=== PATIENT | male | born 1970 | race Caucasian/White ===

== ENCOUNTER 2021-08-13 07:46 | Emergency (ER) | payer MEDICAID, SELFPAY ==
[2021-08-13] VITALS (12 sets, daily range): BP systolic 120–138; BP diastolic 76–91; PULSE 54–103; RESP 12–18; TEMP 36.8–36.9; O2SAT 96–99; BMI 26.4
--- NOTE | 2021-08-13 07:49 | XRR_ITS ---
PROCEDURE INFORMATION: Exam: XR Chest Exam date and time: 08/13/2021 7:49 AM Age: 51 years old Clinical indication: Other: Heaviness; Patient HX: 52-year-old male presents emergency room with complaint of chest pain shortness of breath fatigue myalgias. This been going on for last 3 days. TECHNIQUE: Imaging protocol: XR of the chest. Views: 1 view. COMPARISON: CR Chest 1 [place] [id number] 05/21/2018 12:43 PM FINDINGS: Lungs: Unremarkable. No consolidation. Pleural spaces: Unremarkable. No pleural effusion. No pneumothorax. Heart/Mediastinum: Unremarkable. No cardiomegaly. Bones/joints: Unremarkable. XR/XR chest 1V portable [id number] IMPRESSION: No acute findings.
--- NOTE | 2021-08-13 07:49 | ECG_ITS ---
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/store/[id number]
--- NOTE | 2021-08-13 07:49 | W.ED.CHESTPA ---
HPI - Chest Pain General: Chief Complaint: Chest Pain Stated Complaint: cp, sob, fatigue Time Seen by Provider: 08/13/21 07:48 History of Present Illness: HPI narrative: 52-year-old male presents emergency room with complaint of chest pain shortness of breath fatigue myalgias. This been going on for last 3 days. He has had a mildly productive cough mostly clear phlegm. He has not noticed any fevers he has had some associated diarrhea with that. He has no known history of coronary artery disease although he did have a work-up about 3 years ago which included a negative angiogram in April 2018. He noticed that rest does alleviate symptoms exertion worsens particularly the shortness of breath. He states he is a sudden loss of stamina as well. Patient is nondiabetic is a known history of hypertension and he is a smoker. MD complaint: chest pain and chest heaviness Onset (ago): day(s) (3) Timing of current episode: episodic Onset: during exertion Pain location: left chest Pain radiation: none Severity: mild Quality: aching and heaviness Relieving factors: rest Exacerbating factors: exertion Associated symptoms: Reports dyspnea; Deny abdominal pain, diaphoresis, fever(s), leg edema, nausea, palpitations, sense of impending doom, syncope or vomiting Treatment prior to arrival: none Review of Systems Const: Denies: fever(s) or diaphoresis Card: Denies: palpitations or syncope Resp: Reports: dyspnea and productive cough (Clear phlegm) GI: Denies: abdominal pain, nausea or vomiting : Denies: flank pain, dysuria, urinary frequency or urinary urgency Skin/Breast: Denies: rash or pruritus [facility] ED PFSH: Medical History (Updated 08/13/21 @ 10:39 by Ken Vee DO) HTN (hypertension) Physical Exam Const: COMMON NORMALS: no acute distress GENERAL APPEARANCE: cooperative and comfortable ORIENTATION/CONSCIOUSNESS: Yes awake, Yes oriented to person, Yes oriented to place and Yes oriented to time HENMT: COMMON NORMALS: normocephalic, atraumatic and hearing grossly normal bilaterally HEAD & SCALP: normocephalic and atraumatic Neck/C-Spine: COMMON NORMALS: no JVD Resp: COMMON NORMALS: normal respiratory effort, No retractions, No use of accessory muscles and clear to auscultation bilaterally AUSCULTATION: clear to auscultation bilaterally Cardio: COMMON NORMALS: no JVD, regular rate, regular rhythm and No murmurs present (Cardio) RATE: regular rate RHYTHM: regular rhythm GI: COMMON NORMALS: Soft to palpation and No hepatosplenomegaly present AUSCULTATION: Yes normoactive bowel sounds PALPATION: Yes Soft to palpation, No Tenderness to palpation present (GI), No Guarding due to palpation present (GI) and Yes No hepatosplenomegaly present Extremity: COMMON NORMALS: normal to inspection, capillary refill normal, no clubbing, cyanosis or edema, no calf tenderness and no pedal edema Neuro: SENSORIUM/ORIENTATION: Yes oriented to person, Yes oriented to place and Yes oriented to time Skin: COMMON NORMALS: no rashes or lesions noted GENERAL SKIN EXAM: no rashes or lesions noted Course Vital Signs: Vital signs: Vital Signs Temperature 98.4 F 08/13/21 09:30 Pulse Rate 57 L 08/13/21 10:30 Respiratory Rate 16 08/13/21 10:30 Blood Pressure 123/78 08/13/21 10:30 Pulse Oximetry 98 08/13/21 10:30 MDM - Chest Pain MDM Narrative: Medical decision making narrative: Labs imaging and EKGs reviewed as on the chart. 2-hour troponin negative EKGs do not show anything acute. 3 years ago patient had a normal angiogram. Organ to go ahead and discharge the patient home. In discussing his discharge with the patient he made comment of the fact that he had had bloody stools a few days ago the bloody stools resolved and he is not had any further problems. In the past he was told he had diverticulosis based on a CT of his abdomen has not had a colonoscopy. And is not had any further problems. In the past he was told he had diverticulosis based on a CT of his abdomen has not had a colonoscopy. We will go and start him on 1 weeks worth of Cipro and yl encouraged him to follow-up with his primary care doctor he should have a colonoscopy at some point in the near future. Also advised patient to maintain self quarantine until Covid results are back is worsening symptoms return. If his Covid is negative follow-up with primary care for further discussion about repeat stress testing. Return if has problems Lab Data: Labs: Lab Results 08/13/21 08/13/21 08/13/21 Range/Units 08:05 08:05 08:05 WBC 7.9 (4.0-10.0) 10^3/ uL RBC 5.04 (4.1-5.3) 10^6/u L Hgb 15.6 (11.7-16.6) g/dL Hct 47.3 (42.0-52.0) % MCV 93.8 (80-94) fl MCH 31.0 (28.0-34.0) pg MCHC 33.0 (30.0-36.0) g/dL RDW 12.5 (12.1-15.1) % Plt Count 303 (130-400) 10^3/c mm MPV 10.8 H (7.4-10.4) fL Neut % (Auto) 70.8 % Lymph % (Auto) 20.9 % [place] % (Auto) 6.0 % Eos % (Auto) 1.6 % Baso % (Auto) 0.4 % Neut # (Auto) 5.62 (1.8-7.7) 10^3/u L Lymph # (Auto) 1.7 (0.8-4.8) 10^3/u L [place] # (Auto) 0.5 (0.2-0.9) 10^3/u L Eos # (Auto) 0.1 (0.0-0.8) 10^3/u L Baso # (Auto) 0.0 (0.0-0.1) 10^3/u L Nucleated RBC % (a uto) 0 % Nucleated RBCs # 0.0 /100WBC Sodium 137 (136-145) mmol/L Potassium 4.7 (3.5-5.1) mmol/L Chloride 102 (98-107) mmol/L Carbon Dioxide 24 (22-29) mmol/L Anion Gap 15.7 (5-19) BUN 14 (6-20) mg/dL Creatinine 0.9 (0.7-1.2) mg/dL GFR Calculation 89.0 L (90-130) mL/min Glucose 118 H (65-115) mg/dL Calculated Osmolal ity 286 (285-295) mOsm/k g Calcium 9.4 (8.5-10.5) mg/dL Total Bilirubin 0.9 (0.15-1.2) mg/dL AST 14 (0-40) U/L ALT 16 (0-41) U/L Alkaline Phosphata se 66 (40-130) IU/L Troponin T Baselin e 8 (0-15) ng/L Troponin T 120 Min mor[place] (0-15) ng/L Delta Troponin T (0-10) ABS# Total Protein 6.8 (6.6-8.7) g/dL Albumin 4.4 (3.5-5.2) g/dL Globulin 2.4 (1.3-4.6) g/dL 08/13/21 Range/Units 09:56 WBC (4.0-10.0) 10^3/ uL RBC (4.1-5.3) 10^6/u L Hgb (11.7-16.6) g/dL Hct (42.0-52.0) % MCV (80-94) fl MCH (28.0-34.0) pg MCHC (30.0-36.0) g/dL RDW (12.1-15.1) % Plt Count (130-400) 10^3/c mm MPV (7.4-10.4) fL Neut % (Auto) % Lymph % (Auto) % [place] % (Auto) % Eos % (Auto) % Baso % (Auto) % Neut # (Auto) (1.8-7.7) 10^3/u L Lymph # (Auto) (0.8-4.8) 10^3/u L [place] # (Auto) (0.2-0.9) 10^3/u L Eos # (Auto) (0.0-0.8) 10^3/u L Baso # (Auto) (0.0-0.1) 10^3/u L Nucleated RBC % (a uto) % Nucleated RBCs # /100WBC Sodium (136-145) mmol/L Potassium (3.5-5.1) mmol/L Chloride (98-107) mmol/L Carbon Dioxide (22-29) mmol/L Anion Gap (5-19) BUN (6-20) mg/dL Creatinine (0.7-1.2) mg/dL GFR Calculation (90-130) mL/min Glucose (65-115) mg/dL Calculated Osmolal ity (285-295) mOsm/k g Calcium (8.5-10.5) mg/dL Total Bilirubin (0.15-1.2) mg/dL AST (0-40) U/L ALT (0-41) U/L Alkaline Phosphata se (40-130) IU/L Troponin T Baselin e (0-15) ng/L Troponin T 120 Min [place] 6.43 (0-15) ng/L Delta Troponin T -1.57 L (0-10) ABS# Total Protein (6.6-8.7) g/dL Albumin (3.5-5.2) g/dL Globulin (1.3-4.6) g/dL Discharge Plan Discharge Patient Disposition: Home Clinical Impression: Atypical chest pain, COVID-19 determined by clinical diagnostic criteria, Diverticulitis Condition: Stable Prescriptions: New ciprofloxacin HCl 500 mg tablet 500 mg PO BID Qty: 14 RF: 0 Flagyl 500 mg tablet 500 mg PO BID 7 Days Qty: 14 RF: 0 No Action multivitamin Tablet 1 tab PO QAM RF: 0 Aspir-81 81 mg Tablet,Delayed Release (Dr/Ec) 81 mg PO QAM RF: 0 tamsulosin 0.4 mg capsule 0.4 mg PO QAM RF: 0 lisinopril 10 mg tablet 20 mg PO QAM RF: 0 Nitrostat 0.4 mg Tablet, Sublingual 0.4 mg SUBLINGUAL Q5M PRN (Reason: Chest Pain) RF: 0 Discharge Orders: Discharge ED (Routine); Ordered 08/13/21 Ordered By: Ken Vee Referrals: Alfredo Rowland [Primary Care Provider] - Discharge Diet: Usual diet Discharge Activity: Limit activity as instructed Patient Instructions: Opioid Safety Activity Restrictions/Additional Instructions: Follow-up with your primary care. You were tested today for COVID-19 recommend you remain in self quarantine until the result is back tomorrow. If it is negative you may need a repeat cardiac stress test if it is positive further instructions per your primary care. Return to the emergency room for further problems. Coding Level of Care Code ED Cloth Burler for Ame Fwlatia Exam Comprehensive
[2021-08-13] MEDS: aspirin 81 mg Chew Tablet 324 MG PO (08:04)
[2021-08-13 08:26] LABS: Basophils % 0.4 %; Eosinophils # 0.1 10^3/uL (0.0-0.8); Eosinophils % 1.6 %; Hematocrit 47.3 % (42.0-52.0); Hemoglobin 15.6 g/dL (11.7-16.6); Lymphocytes # 1.7 10^3/uL (0.8-4.8); Lymphocytes % 20.9 %; Mean Corpuscular Volume 93.8 fl (80-94); Mean Platelet Volume 10.8 fL (7.4-10.4); Monocytes # 0.5 10^3/uL (0.2-0.9); Neutrophils # 5.62 10^3/uL (1.8-7.7); Neutrophils % 70.8 %; Nucleated Red Blood Cells % 0 %; Platelet Count 303 10^3/cmm (130-400); Red Blood Count 5.04 10^6/uL (4.1-5.3); Red Cell Distribution Width 12.5 % (12.1-15.1); White Blood Count 7.9 10^3/uL (4.0-10.0)
[2021-08-13 08:38] LABS: Alanine Aminotransferase 16 U/L (0-41); Albumin Level 4.4 g/dL (3.5-5.2); Alkaline Phosphatase 66 IU/L (40-130); Anion Gap 15.7 (5-19); Aspartate Amino Transferase 14 U/L (0-40); Blood Urea Nitrogen 14 mg/dL (6-20); Calcium 9.4 mg/dL (8.5-10.5); Carbon Dioxide 24 mmol/L (22-29); Chloride 102 mmol/L (98-107); Creatinine Clr Calc Pharmacy 115.6824; Globulin 2.4 g/dL (1.3-4.6); Glucose 118 mg/dL (65-115); Osmolality Calculated 286 mOsm/kg (285-295); Potassium 4.7 mmol/L (3.5-5.1); Sodium 137 mmol/L (136-145); Total Bilirubin 0.9 mg/dL (0.15-1.2); Total Protein 6.8 g/dL (6.6-8.7); Troponin(5th) Baseline 8 ng/L (0-15)
--- NOTE | 2021-08-13 09:49 | ECG_ITS ---
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
[2021-08-13 10:23] LABS: Troponin 5 2HR 6.43 ng/L (0-15)
[2021-08-13 10:26] LABS: Troponin 5 2HR Delta -1.57 ABS# (0-10)
[2021-08-14 15:26] LABS: Coronavirus Test Green County Not Detected
== END 2021-08-13 11:00 | disposition home or self-care (01) ==
PROVIDERS: Emergency Provider Family Medicine; PCP Nurse Practitioner Family
DX: U07.1 COVID-19 (principal); R07.89 Other chest pain; K57.92 Diverticulitis of intestine, part unspecified, without perforation or abscess without bleeding; Z79.82 Long term (current) use of aspirin; I10 Essential (primary) hypertension
CPT/HCPCS: 71045; 80053; 84484; 85025; 87635; 93005; 99284

== ENCOUNTER 2021-12-30 11:01 | Emergency (ER) | payer BC, MEDICAID, SELFPAY ==
[2021-12-30 11:20] VITALS: BP 161/82; PULSE 75; RESP 18; TEMP 36.6; O2SAT 91; BMI 27.7
--- NOTE | 2021-12-30 11:26 | W.ED.CHESTPA ---
HPI - Chest Pain General: Chief Complaint: Chest Pain Stated Complaint: cp Time Seen by Provider: 12/30/21 11:26 History of Present Illness: 51-year-old gentleman presents with chest pain. States it started yesterday. Reports it is achy. States it was exertional. It is still ongoing. Is not pleuritic. Denies any lower extremity pain or swelling. Denies any nausea vomiting fever cough or chills. Review of Systems Narrative: - CONSTITUTIONAL: Denies weight loss, fever and chills. - HEENT: Denies changes in vision and hearing. - RESPIRATORY: Denies SOB and cough. - CV: As above - GI: Denies abdominal pain, nausea, vomiting and diarrhea. - : Denies dysuria and urinary frequency. - MSK: Denies myalgia and joint pain. - SKIN: Denies rash and pruritus. - NEUROLOGICAL: Denies headache, weakness, numbness and syncope. - PSYCHIATRIC: Denies suicidal ideation [facility] ED PFSH: Medical History (Updated 12/30/21 @ 16:13 by Kvng Buckner MD) HTN (hypertension) Physical Exam Narrative: EXAM NARRATIVE: - GENERAL: Alert and oriented x 3. No acute distress. Well-nourished. - EYES: EOMI. Anicteric. - HENT: Atraumatic, no C-spine tenderness. Moist mucous membranes. No scleral icterus. No cervical lymphadenopathy. - LUNGS: Clear to auscultation bilaterally. No accessory muscle use. Equal lung sounds bilaterally. No respiratory distress. - CARDIOVASCULAR: Regular rate and rhythm. No murmur. No JVD. - ABDOMEN: Soft, non-tender and non-distended. Negative CVA tenderness bilaterally, no rebound or guarding, negative Mustafa sign. No palpable masses. - EXTREMITIES: No edema. Non-tender. - SKIN: No rashes or lesions. Warm. - NEUROLOGIC: No meningismus or focal neurological deficits. CN II-XII grossly intact. - PSYCHIATRIC: Cooperative. Appropriate mood and affect. Course Vital Signs: Vital signs: Vital Signs Temperature 98 F 12/30/21 11:20 Pulse Rate 74 12/30/21 15:50 Respiratory Rate 14 12/30/21 15:50 Blood Pressure 147/103 12/30/21 15:50 Pulse Oximetry 96 12/30/21 15:50 MDM - Chest Pain Medical Decision Making 51-year-old male presents with chest pain. Does have history of previous stress test that was unremarkable in 2017. Had similar symptoms in May 2021. Today EKG and troponins do not reveal any sign of acute ischemia or other acute abnormality. D-dimer is negative. X-ray does not reveal pneumothorax or consolidation. However due to risk factors did offer him admission for stress test however he declined and states that he has an outpatient stress test scheduled and he would like to follow-up with that and I believe this is reasonable. Of note lab work also revealed elevated bilirubin but ultrasound right upper quadrant does not reveal any cholelithiasis or liver abnormality. Remainder of lab work unremarkable. At this time I believe patient would be safe for discharge and outpatient follow-up. Return precautions provided. Plan was reviewed with the patient who expressed understanding. Questions answered. Patient will follow up with PCP. Patient discharged in stable condition. Lab Data : 12/30/21 11:48 12/30/21 11:48 Radiology Impressions Chest X-Ray 12/30/21 11:38 IMPRESSION: No acute findings. Abdomen Ultrasound 12/30/21 14:14 IMPRESSION: No acute findings. Laboratory Results WBC 9.0 10^3/uL (4.0-10.0) 12/30/21 11:48 RBC 5.40 10^6/uL (4.1-5.3) H 12/30/21 11:48 Hgb 16.4 g/dL (11.7-16.6) 12/30/21 11:48 Hct 49.4 % (42.0-52.0) 12/30/21 11:48 MCV 91.5 fl (80-94) 12/30/21 11:48 MCH 30.4 pg (28.0-34.0) 12/30/21 11:48 MCHC 33.2 g/dL (30.0-36.0) 12/30/21 11:48 RDW 12.4 % (12.1-15.1) 12/30/21 11:48 Plt Count 260 10^3/cmm (130-400) 12/30/21 11:48 MPV 11.2 fL (7.4-10.4) H 12/30/21 11:48 Neut % (Auto) 68.8 % 12/30/21 11:48 Lymph % (Auto) 20.7 % 12/30/21 11:48 [place] % (Auto) 7.4 % 12/30/21 11:48 Eos % (Auto) 2.1 % 12/30/21 11:48 Baso % (Auto) 0.7 % 12/30/21 11:48 Neut # (Auto) 6.21 10^3/uL (1.8-7.7) 12/30/21 11:48 Lymph # (Auto) 1.9 10^3/uL (0.8-4.8) 12/30/21 11:48 [place] # (Auto) 0.7 10^3/uL (0.2-0.9) 12/30/21 11:48 Eos # (Auto) 0.2 10^3/uL (0.0-0.8) 12/30/21 11:48 Baso # (Auto) 0.1 10^3/uL (0.0-0.1) 12/30/21 11:48 Nucleated RBC % (auto) 0 % 12/30/21 11:48 Nucleated RBCs # 0.0 /100WBC 12/30/21 11:48 PT 13.10 SECONDS (12.1-14.9) 12/30/21 11:48 INR 0.96 (0.8-1.2) 12/30/21 11:48 APTT 31.3 SECONDS (23.9-36.7) 12/30/21 11:48 D-Dimer 0.30 ug/mIFEU (0-0.59) 12/30/21 11:48 Sodium 134 mmol/L (136-145) L 12/30/21 11:48 Potassium 4.5 mmol/L (3.5-5.1) 12/30/21 11:48 Chloride 101 mmol/L (98-107) 12/30/21 11:48 Carbon Dioxide 19 mmol/L (22-29) L 12/30/21 11:48 Anion Gap 18.5 (5-19) 12/30/21 11:48 BUN 20 mg/dL (6-20) 12/30/21 11:48 Creatinine 0.9 mg/dL (0.7-1.2) 12/30/21 11:48 GFR Calculation 89.0 mL/min (90-130) L 12/30/21 11:48 Glucose 92 mg/dL (65-115) 12/30/21 11:48 Calculated Osmolality 280 mOsm/kg (285-295) L 12/30/21 11:48 Calcium 9.9 mg/dL (8.5-10.5) 12/30/21 11:48 Total Bilirubin 1.4 mg/dL (0.15-1.2) H 12/30/21 11:48 AST 16 U/L (0-40) 12/30/21 11:48 ALT 21 U/L (0-41) 12/30/21 11:48 Alkaline Phosphatase 81 IU/L (40-130) 12/30/21 11:48 Troponin T Baseline 7 ng/L (0-15) 12/30/21 11:48 Troponin T 120 Minute 6.00 ng/L (0-15) 12/30/21 13:51 Delta Troponin T -1.0 ABS# (0-10) L 12/30/21 13:51 NT-Pro-B Natriuret Pep 10 pg/mL (0-125) 12/30/21 11:48 Total Protein 7.1 g/dL (6.6-8.7) 12/30/21 11:48 Albumin 4.9 g/dL (3.5-5.2) 12/30/21 11:48 Globulin 2.2 g/dL (1.3-4.6) 12/30/21 11:48 Lipase 29 U/L (13-60) 12/30/21 11:48 SARS-CoV-2 Ag (Rapid) Negative (Negative) 12/30/21 12:40 Other Data Normal sinus rhythm, rate of 69, no sign of acute ischemia or other acute abnormality. Discharge Plan Discharge Patient Disposition: Home Clinical Impression: Chest pain Condition: Stable Prescriptions: No Action multivitamin Tablet 1 tab PO QAM 0RF aspirin [Aspir-81] 81 mg Tablet,Delayed Release (Dr/Ec) 81 mg PO QAM 0RF lisinopril 10 mg tablet 30 mg PO QAM 0RF nitroglycerin [Nitrostat] 0.4 mg Tablet, Sublingual 0.4 mg SUBLINGUAL Q5M PRN (Reason: Chest Pain) 0RF Fish Oil 1,200 (144-216) mg Capsule 1 cap PO DAILY 0RF Discharge Orders: Discharge ED (Routine); Ordered 12/30/21 Ordered By: Kvng Buckner Referrals: Alfredo Rowland [Primary Care Provider] - 1-3 days Patient Instructions: Chest Pain (ED), Opioid Safety Coding Level of Care Code ED Internet Marketing Executive for Ame Gaytan
--- NOTE | 2021-12-30 11:38 | XRR_ITS ---
PROCEDURE INFORMATION: Exam: XR Chest Exam date and time: 12/30/2021 11:38 AM Age: 51 years old Clinical indication: Pain; Chest pressure; Additional info: Cp TECHNIQUE: Imaging protocol: XR of the chest. Views: 1 view. COMPARISON: CR XR chest 1V portable [id number] 08/13/2021 7:59 AM FINDINGS: Lungs: Unremarkable. No consolidation. Pleural spaces: Unremarkable. No pleural effusion. No pneumothorax. Heart/Mediastinum: Unremarkable. No cardiomegaly. Bones/joints: Unremarkable. XR/XR chest 1V portable [id number] IMPRESSION: No acute findings.
--- NOTE | 2021-12-30 11:41 | ECG_ITS ---
[facility] Test Date: 2021-12-30 Pat Name: Anastacio Coleman Department: Room: Gender: Male Mri Assistant: : 1970 Requested By: Kvng Buckner Order Number: [id number] Ace MD: Zonia Lazaro M.D. Measurements Intervals [place] Rate: 67 P: 22 HI: 162 QRS: -10 QRSD: 99 T: 23 QT: 386 QTc: 408 Interpretive Statements SINUS RHYTHM Compared to ECG 12/30/2021 11:19:52 No significant changes Electronically Signed On 12-30-2021 16:57:52 SORT WORKER by Zonia Lazaro M.D. [email or web address]/store/[id number]
[2021-12-30 11:50] VITALS: BP 135/90; PULSE 75; RESP 21; O2SAT 95
--- NOTE | 2021-12-30 11:53 | PC.NURSE ---
PATIENT PLACED ON CONTINUOUS BEDSIDE CARDIAC, BP AND O2 MONITOR.
[2021-12-30 11:54] LABS: Basophils # 0.1 10^3/uL (0.0-0.1); Basophils % 0.7 %; Eosinophils # 0.2 10^3/uL (0.0-0.8); Eosinophils % 2.1 %; Hematocrit 49.4 % (42.0-52.0); Hemoglobin 16.4 g/dL (11.7-16.6); Lymphocytes # 1.9 10^3/uL (0.8-4.8); Lymphocytes % 20.7 %; Mean Corpuscular HGB Conc 33.2 g/dL (30.0-36.0); Mean Corpuscular Hemoglobin 30.4 pg (28.0-34.0); Mean Corpuscular Volume 91.5 fl (80-94); Mean Platelet Volume 11.2 fL (7.4-10.4); Monocytes # 0.7 10^3/uL (0.2-0.9); Monocytes % 7.4 %; Neutrophils # 6.21 10^3/uL (1.8-7.7); Neutrophils % 68.8 %; Nucleated Red Blood Cells % 0 %; Platelet Count 260 10^3/cmm (130-400); Red Cell Distribution Width 12.4 % (12.1-15.1)
[2021-12-30] MEDS: aspirin 81 mg Chew Tablet 324 MG PO (11:59)
[2021-12-30] MEDS: nitroglycerin 0.4 mg sublingual Tablet SUBLINGUAL (12:00)
[2021-12-30 12:18] LABS: INR 0.96 (0.8-1.2)
[2021-12-30 12:19] LABS: Partial Thromboplastin Time 31.3 SECONDS (23.9-36.7)
[2021-12-30 12:36] VITALS: BP 115/82; PULSE 69; RESP 18; O2SAT 95
[2021-12-30 12:40] LABS: Troponin(5th) Baseline 7 ng/L (0-15)
[2021-12-30 12:48] LABS: Alanine Aminotransferase 21 U/L (0-41); Albumin Level 4.9 g/dL (3.5-5.2); Alkaline Phosphatase 81 IU/L (40-130); Anion Gap 18.5 (5-19); Aspartate Amino Transferase 16 U/L (0-40); Blood Urea Nitrogen 20 mg/dL (6-20); Calcium 9.9 mg/dL (8.5-10.5); Carbon Dioxide 19 mmol/L (22-29); Chloride 101 mmol/L (98-107); Globulin 2.2 g/dL (1.3-4.6); Glucose 92 mg/dL (65-115); Lipase 29 U/L (13-60); NT Pro B Type Natriuretic Pept 10 pg/mL (0-125); Osmolality Calculated 280 mOsm/kg (285-295); Potassium 4.5 mmol/L (3.5-5.1); Sodium 134 mmol/L (136-145); Total Bilirubin 1.4 mg/dL (0.15-1.2); Total Protein 7.1 g/dL (6.6-8.7)
--- NOTE | 2021-12-30 13:41 | ECG_ITS ---
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 Measurements Intervals [place] Rate: 65 P: 29 VT: 166 QRS: 0 QRSD: 99 T: 26 QT: 386 QTc: 401 Interpretive Statements SINUS RHYTHM Compared to ECG 12/30/2021 11:19:52 No significant changes Electronically Signed On 12-30-2021 17:02:51 R PROGRAMMER by Zonia Lazaro M.D. [email or web address].[employer]/store/[id number]
[2021-12-30 13:49] VITALS: BP 114/83; PULSE 65; RESP 16; O2SAT 97
[2021-12-30 13:52] LABS: SARS Covid-2 Antigen Negative (Negative)
--- NOTE | 2021-12-30 14:14 | USR_ITS ---
PROCEDURE INFORMATION: Exam: US Abdomen, Limited; Right Upper Quadrant Exam date and time: 12/30/2021 2:14 PM Age: 51 years old Clinical indication: Abnormal findings; Abnormal lab test; Elevated liver enzymes; Additional info: Elevated bili TECHNIQUE: Imaging protocol: US abdomen. Real time ultrasound with image documentation. Limited exam focused on the right upper quadrant. COMPARISON: CTA Chest-Pulmonary Emb [id number] 05/20/2018 4:48 PM FINDINGS: Liver: Normal. No masses. Gallbladder: Normal. No gallstones. There is no gallbladder wall thickening. Common bile duct: Normal. No stones. No dilation. Pancreas: Visualized pancreas is unremarkable. Body and tail are not well seen likely due to overlying bowel gas. Right kidney: Normal. No mass. No hydronephrosis. US/US abdomen limited [id number] IMPRESSION: No acute findings.
[2021-12-30 15:50] VITALS: BP 147/103; PULSE 74; RESP 14; O2SAT 96
--- NOTE | 2021-12-30 17:41 | ECG_ITS ---
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 Measurements Intervals [place] Rate: 69 P: 44 ID: [id number] QRS: 6 QRSD: 101 T: 47 QT: 371 QTc: 398 Interpretive Statements SINUS RHYTHM Compared to ECG 08/13/2021 09:27:43 Sinus bradycardia no longer present Electronically Signed On 12-30-2021 17:03:01 BALLOON DESIGN PRINTER by Zonia Lazaro M.D. [id number]
== END 2021-12-30 16:21 | disposition home or self-care (01) ==
PROVIDERS: Emergency Provider Emergency Medicine; PCP Nurse Practitioner Family
DX: R07.9 Chest pain, unspecified (principal); Z79.82 Long term (current) use of aspirin; Z20.822 Contact with and (suspected) exposure to COVID-19
CPT/HCPCS: 36415; 71045; 76705; 80053; 83690; 83880; 84484; 85025; 85378; 85610; 85730; 87426; 93005; 99284

== ENCOUNTER → 2022-09-16 14:07 | Outpatient (BNVA) | payer BC, MEDICAID, SELFPAY | PROVIDERS: PCP Nurse Practitioner Family; Visit Provider Internal Medicine | DX: E80.6 Other disorders of bilirubin metabolism (principal); Z87.891 Personal history of nicotine dependence | CPT/HCPCS: 80053; 82247; 82248; 83010; 83615 ==

== ENCOUNTER 2024-02-20 12:17 | Emergency (ER) | payer BC, MEDICAID, SELFPAY ==
[2024-02-20 12:22] VITALS: BP 136/87; PULSE 59; RESP 16; TEMP 36.7; O2SAT 94
--- NOTE | 2024-02-20 12:23 | XR_ITS ---
WS: [id number] Exam: XR chest 1V portable [id number] Date/Time of Exam: 02/20/2024 12:23 PM Reason For Exam: chest pain Comparison 12/30/2021. Findings: The lungs are clear and fully expanded. Costophrenic angles are sharp. No infiltrates. Bronchovascula r relief appears normal. Cardiac silhouette is unremarkable. Bony elements are intact. IMPRESSION: Unremarkable chest radiograph.
--- NOTE | 2024-02-20 12:24 | ECG_ITS ---
[facility] Test Date: 2024-02-20 Pat Name: Anastacio Coleman Department: Room: Gender: Male Regional Clinical Director: : 1970 Requested By: Richy Buckner Order Number: [id number] Malka MD: Gwyn Kong M.D. Measurements Intervals [place] Rate: 54 P: 36 HI: 168 QRS: -1 QRSD: 95 T: 44 QT: 412 QTc: 392 Interpretive Statements SINUS BRADYCARDIA Compared to ECG 12/30/2021 13:14:23 Sinus rhythm no longer present Electronically Signed On 02-20-2024 12:38:28 CDT by Gwyn Kong M.D. [email or web address]/store/NU/[id number] f
[2024-02-20 12:27] VITALS: BP 136/87; PULSE 58; RESP 18; O2SAT 93
--- NOTE | 2024-02-20 12:36 | PC.PHAR ---
pt states he takes care of his own medications-pt states his imdur er 60mg daily was dced a while ago ext shows last filled 06/12/23 30d/s-pt states been out of his nitrostat for a year
--- NOTE | 2024-02-20 12:49 | ED_ITS ---
HPI - Chest Pain 2 General: Chief Complaint: Chest Pain Stated Complaint: Chest pain Time Seen by Provider: 02/20/24 12:23 History of Present Illness: Patient arrives to the ER via private vehicle with chief complaint of right- sided chest pain shortness of breath that started yesterday afternoon. Patient states his pain is more of a pressure and he feels like he cannot catch his breath with his pulse ox at home dipping all the way down to approximately 88. Patient says the pain has not gotten worse but the pain does not seem to go away. Pain is not reproducible with palpation or exertion. Patient states he has no cardiac history other than hypertension. Patient denies any nausea vomiting or diaphoresis. Review of Systems 2 General: Reports: 10 or more systems reviewed and unremarkable except in HPI and below PFSH ED 2 PFSH: Medical History HTN (hypertension) Family History Father No problems noted. Mother ALS (amyotrophic lateral sclerosis) Social History Smoking and tobacco/nicotine status: former use of tobacco/nicotine Quit status (tobacco/nicotine): has quit using Second hand smoke exposure: No Alcohol intake: current Alcohol intake frequency: holidays/special occasions only Alcohol type: beer Substance/Drug Use: never Adopted: No Caregiver/support person: No Lives independently: Yes Household members: spouse and children Housing: House Marital status: Number of children: 2 Highest education level completed: GED or Equivalent service: No Current occupational status: employed Physical Exam 2 Const: COMMON NORMALS: no acute distress, average body habitus, patient oriented x3, no limitations, healthy appearing, alert and well nourished HENMT: COMMON NORMALS: normocephalic, atraumatic, hearing grossly normal bilaterally, external ears normal, Normal external nose present, moist oral mucous membranes and oropharynx normal HEAD & SCALP: normocephalic and atraumatic NOSE: Normal external nose present EXTERNAL EAR: Yes external ears normal Neck/C-Spine: COMMON NORMALS: full ROM, no lymphadenopathy, supple, no meningeal signs, no JVD and Thyroid normal THYROID: Thyroid normal Chest: COMMONS NORMALS: normal inspection of the chest and normal palpation of entire chest wall Resp: COMMON NORMALS: normal respiratory effort, No retractions, No use of accessory muscles and clear to auscultation bilaterally AUSCULTATION: clear to auscultation bilaterally Cardio: COMMON NORMALS: no JVD, regular rate, regular rhythm, S1 normal heart sound present, S2 normal heart sound present, No gallops present (Cardio), No clicks present (Cardio), No murmurs present (Cardio) and No rub (Cardio) R ATE: regular rate RHYTHM: regular rhythm HEART SOUNDS: S1 normal heart sound present and S2 normal heart sound present GI: COMMON NORMALS: Normal to inspection, nondistended, normoactive bowel sounds present, Soft to palpation, non-tender, No hepatosplenomegaly present and no masses PALPATION: Yes Soft to palpation and Yes No hepatosplenomegaly present Neuro: COMMON NORMALS: patient oriented x3 SENSORIUM/ORIENTATION: Yes alert MENINGEAL SIGNS: Yes no meningeal signs Course 2 Vital Signs: Vital signs: Vital Signs Temperature 98.1 F 02/20/24 12:22 Pulse Rate 63 02/20/24 16:44 Respiratory Rate 17 02/20/24 16:44 Blood Pressure 149/98 02/20/24 16:44 Pulse Oximetry 94 02/20/24 16:44 Oxygen Delivery Me thod Room Air 02/20/24 12:22 MDM - Chest Pain Medical Decision Making Patient presents to the ER with complaints of chest pain shortness of breath. Patient was worked up in a standard chest pain fashion with chest x-ray, serial EKGs and lab work. All of which was essentially negative. It is suspected that patient is having noncardiac chest pain. Patient be discharged home and should follow-up with his PCP. Differential Diagnosis Unlikely acute massive pulmonary embolism, acute respiratory failure, acute myocardial infarction, cardiac arrest or sudden cardiac Medical Records I reviewed the patient's medical records. Lab Data I reviewed the patient's lab results. 02/20/24 12:46 02/20/24 12:46 Laboratory Results WBC 6.72 10^3/uL (3.29-11.43) 02/20/24 12:46 RBC 5.16 10^6/uL (3.85-5.65) 02/20/24 12:46 Hgb 15.90 g/dL (11.27-16.99) 02/20/24 12:46 Hct 47.3 % (37-53) 02/20/24 12:46 MCV 91.7 fl (82-101) 02/20/24 12:46 MCH 30.8 pg (27-33) 02/20/24 12:46 MCHC 33.6 g/dL (30-55) 02/20/24 12:46 RDW 12.8 % (12.1-15.1) 02/20/24 12:46 Plt Count 304 10^3/cmm (157-399) 02/20/24 12:46 MPV 9.9 fL (7.4-10.4) 02/20/24 12:46 Neut % (Auto) 52.4 % 02/20/24 12:46 Lymph % (Auto) 34.7 % 02/20/24 12:46 [place] % (Auto) 8.2 % 02/20/24 12:46 Eos % (Auto) 3.9 % 02/20/24 12:46 Baso % (Auto) 0.7 % 02/20/24 12:46 Neut # (Auto) 3.52 10^3/uL (1.8-7.7) 02/20/24 12:46 Lymph # (Auto) 2.3 10^3/uL (0.8-4.8) 02/20/24 12:46 [place] # (Auto) 0.6 10^3/uL (0.2-0.9) 02/20/24 12:46 Eos # (Auto) 0.3 10^3/uL (0.0-0.8) 02/20/24 12:46 Baso # (Auto) 0.1 10^3/uL (0.0-0.1) 02/20/24 12:46 Nucleated RBC % (auto) 0 % 02/20/24 12:46 Nucleated RBCs # 0.0 /100WBC 02/20/24 12:46 Sodium 138 mmol/L (136-145) 02/20/24 12:46 Potassium 4.6 mmol/L (3.5-5.1) 02/20/24 12:46 Chloride 101 mmol/L (98-107) 02/20/24 12:46 Carbon Dioxide 24 mmol/L (22-29) 02/20/24 12:46 Anion Gap 17.6 (5-19) 02/20/24 12:46 BUN 23 mg/dL (6-20) H 02/20/24 12:46 Creatinine 0.9 mg/dL (0.7-1.2) 02/20/24 12:46 GFR Calculation 88.3 mL/min (90-130) L 02/20/24 12:46 Glucose 99 mg/dL (65-115) 02/20/24 12:46 Calculated Osmolality 290 mOsm/kg (285-295) 02/20/24 12:46 Calcium 9.6 mg/dL (8.5-10.5) 02/20/24 12:46 Total Bilirubin 1.1 mg/dL (0.15-1.2) 02/20/24 12:46 AST 20 U/L (0-40) 02/20/24 12:46 ALT 31 U/L (0-41) 02/20/24 12:46 Alkaline Phosphatase 96 U/L (40-130) 02/20/24 12:46 Troponin T Baseline 8 ng/L (0-15) 02/20/24 12:46 Troponin T 120 Minute 6.00 ng/L (0-15) 02/20/24 15:03 Delta Troponin T -2.00 ABS# (0-10) L 02/20/24 15:03 Total Protein 7.2 g/dL (6.6-8.7) 02/20/24 12:46 Albumin 4.5 g/dL (3.5-5.2) 02/20/24 12:46 Globulin 2.7 g/dL (1.3-4.6) 02/20/24 12:46 All radiology interpretation(s) finalized by discharge EKG Data EKG 1: I personally reviewed and interpreted this EKG as follows: EKG interpretation date: 02/20/24 EKG interpretation time: 12:24 Interpretation: Ventricular 54 bpm, QRS 95, ID interval 168, QTc of 398, sinus bradycardia EKG 2: I personally reviewed and interpreted this EKG as follows: EKG interpretation date: 02/20/24 EKG interpretation time: 15:04 Prior EKG tracings: available for review Interpretation: Ventricular at 53 bpm ID interval 163, QRS duration 100, QTc of 408, sinus bradycardia Discharge Plan Discharge Patient Disposition: Home Clinical Impression: Chest pain, non-cardiac Condition: Stable Prescriptions: No Action multivitamin Tablet 1 tab PO QAM aspirin [Aspir-81] 81 mg Tablet,Delayed Release (Dr/Ec) 81 mg PO QAM sucralfate 100 mg/mL suspension 10 ml PO Q8H Rx Instructions: for 7 days (rx filled 02/18/24) omeprazole 40 mg capsule,delayed release(DR/EC) 40 mg PO QAM lisinopril 30 mg tablet 30 mg PO QAM Aleve 220 mg Tablet 220 mg PO BID PRN (Reason: Pain) Discharge Orders: Discharge ED (Routine); Ordered 02/20/24 Ordered By: Richy Buckner Referrals: Alfredo Rowland [Primary Care Provider] - 1 week Patient Instructions: Chest Pain - Noncardiac Activity Restrictions/Additional Instructions: Your evaluation in the ER that included physical exam, chest x-ray, EKG, and lab work revealed no acute cardiac causes for your chest pain. It is felt that your chest pain is noncardiac in nature. Please follow-up with your family practitioner within next week for further evaluation testing. If your chest pain worsens please feel free to return to the ER. Coding Level of Care Code ED Inspector Handbag Frames for Ame Gaytan
[2024-02-20 13:06] LABS: Basophils # 0.1 10^3/uL (0.0-0.1); Basophils % 0.7 %; Eosinophils # 0.3 10^3/uL (0.0-0.8); Eosinophils % 3.9 %; Hematocrit 47.3 % (37-53); Lymphocytes # 2.3 10^3/uL (0.8-4.8); Lymphocytes % 34.7 %; Mean Corpuscular HGB Conc 33.6 g/dL (30-55); Mean Corpuscular Hemoglobin 30.8 pg (27-33); Mean Corpuscular Volume 91.7 fl (82-101); Mean Platelet Volume 9.9 fL (7.4-10.4); Monocytes # 0.6 10^3/uL (0.2-0.9); Monocytes % 8.2 %; Neutrophils # 3.52 10^3/uL (1.8-7.7); Neutrophils % 52.4 %; Nucleated Red Blood Cells % 0 %; Platelet Count 304 10^3/cmm (157-399); Red Blood Count 5.16 10^6/uL (3.85-5.65); Red Cell Distribution Width 12.8 % (12.1-15.1); White Blood Count 6.72 10^3/uL (3.29-11.43)
[2024-02-20 13:28] LABS: Alanine Aminotransferase 31 U/L (0-41); Albumin Level 4.5 g/dL (3.5-5.2); Alkaline Phosphatase 96 U/L (40-130); Anion Gap 17.6 (5-19); Aspartate Amino Transferase 20 U/L (0-40); Blood Urea Nitrogen 23 mg/dL (6-20); Calcium 9.6 mg/dL (8.5-10.5); Carbon Dioxide 24 mmol/L (22-29); Chloride 101 mmol/L (98-107); Creatinine Clr Calc Pharmacy 113.0828; Globulin 2.7 g/dL (1.3-4.6); Glomerular Filtration Rate 88.3 mL/min (90-130); Glucose 99 mg/dL (65-115); Osmolality Calculated 290 mOsm/kg (285-295); Potassium 4.6 mmol/L (3.5-5.1); Sodium 138 mmol/L (136-145); Total Bilirubin 1.1 mg/dL (0.15-1.2); Total Protein 7.2 g/dL (6.6-8.7)
[2024-02-20 13:31] LABS: Troponin(5th) Baseline 8 ng/L (0-15)
--- NOTE | 2024-02-20 14:23 | ECG_ITS ---
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 Measurements Intervals [place] Rate: 53 P: 21 [place]: 163 QRS: 9 QRSD: 100 T: 45 QT: 424 QTc: 401 Interpretive Statements SINUS BRADYCARDIA Compared to ECG 02/20/2024 12:24:17 No significant changes Electronically Signed On 02-20-2024 22:53:41 CDT by Gwyn Kong M.D. [id number]
[2024-02-20 15:27] VITALS: BP 130/80; PULSE 56; RESP 18; O2SAT 93
[2024-02-20 16:44] VITALS: BP 149/98; PULSE 63; RESP 17; O2SAT 94
== END 2024-02-20 16:49 | disposition home or self-care (01) ==
PROVIDERS: Emergency Provider Emergency Medicine; PCP Nurse Practitioner Family
DX: R07.89 Other chest pain (principal); Z79.82 Long term (current) use of aspirin; I10 Essential (primary) hypertension; Z87.891 Personal history of nicotine dependence
CPT/HCPCS: 36415; 71045; 80053; 84484; 85025; 93005; 99285

== ENCOUNTER 2024-12-13 08:13 | Emergency (ER) | payer BC, MEDICAID, SELFPAY ==
[2024-12-13 08:28] VITALS: BP 133/84; PULSE 73; RESP 18; TEMP 36.8; O2SAT 98
--- NOTE | 2024-12-13 09:08 | ED_ITS ---
HPI - Abdominal Pain 2 General: Chief Complaint: Abdominal Pain Stated Complaint: abd pain Time Seen by Provider: 12/13/24 08:58 Source: patient Mode of arrival: ambulatory Limitations: no limitations History of Present Illness: Patient is a 54-year-old male presents to ED today with complaint of epigastric and left upper quadrant abdominal pain. He states pain has been fairly constant over the past week. He has not noticed any alleviating or worsening factors to his discomfort. He does not seem to think eating affects his symptoms. It is not worse with lying down. He does take omeprazole daily for heartburn. He states he feels nauseous but has not had any episodes of vomiting. He has not noticed any change in bowel or urinary habits. He has not been running fevers. No recent illness. Denies large amounts of anti-inflammatories. Denies alcohol use. States pain does not seem to radiate into his chest or back. He is currently rating it at a 6/10. PCP is Dr. Lanier. elicited complaint: abdominal pain Pertinent past history: none Onset (ago): week(s) Pain Consistency: constant Location: Epigastric and LUQ Severity: moderate Pain scale (0-10): 6 Radiation: none Migration to: no migration Exacerbating factors: nothing Relieving factors: nothing Associated Symptoms: Reports nausea; Denies change in bowel habits, chills, GI cramping, diarrhea, dysuria, fever(s), heartburn, hematochezia, hematemesis, melena, syncope and vomiting Related Data Home Medications Medication Instructions Recorded Confirmed multivitamin 1 tab PO QAM 08/13/21 12/13/24 omeprazole 20 mg capsule,delayed 20 mg PO DAILY 12/13/24 12/13/24 release Previous Rx's Medication Instructions Recorded sucralfate 1 gram tablet (Carafate) 1 g PO TID 2 weeks #42 tabs 12/13/24 Allergies Allergy/AdvReac Type Severity Reaction Status Date / Time No Known Allergies Allergy Verified 02/20/24 12:34 Review of Systems 2 Const: Denies: fever(s), chills, body aches, fatigue or malaise Eyes: Denies: change in vision or blurry vision Card: Denies: chest pain, palpitations, irregular heart rhythm, lightheadedness, syncope or dyspnea on exertion Resp: Denies: dyspnea, productive cough or pain on inspiration GI: Reports: abdominal pain and nausea; Denies: vomiting, hematemesis, heartburn, diarrhea, GI cramping, change in bowel habits, hematochezia or melena : Denies: flank pain, difficulty urinating, dysuria or urinary frequency Musc: Denies: neck pain, back pain, extremity pain, extremity swelling or joint pain Skin/Breast: Denies: rash Neuro: Denies: headache(s), numbness in extremities, weakness in extremities, sensory changes or dizziness PFSH ED 2 PFSH: Medical History HTN (hypertension) Family History (Reviewed 12/13/24 @ 09: by NALLELY Escobar) Father No problems noted. Mother ALS (amyotrophic lateral sclerosis) Social History Smoking and tobacco/nicotine status: former use of tobacco/nicotine Quit status (tobacco/nicotine): has quit using Second hand smoke exposure: No Alcohol intake: current Alcohol intake frequency: holidays/special occasions only Alcohol type: beer Substance/Drug Use: never Adopted: No Caregiver/support person: No Lives independently: Yes Household members: spouse and children Housing: House Marital status: Number of children: 2 Highest education level completed: GED or Equivalent service: No Current occupational status: employed Physical Exam 2 Const: COMMON NORMALS: no acute distress, average body habitus, patient oriented x3, no limitations, healthy appearing, alert and well nourished HENMT: COMMON NORMALS: normocephalic and atraumatic HEAD & SCALP: n ormocephalic and atraumatic Eye: COMMON NORMALS: no scleral icterus Neck/C-Spine: COMMON NORMALS: full ROM, no lymphadenopathy, supple and no meningeal signs Chest: COMMONS NORMALS: normal inspection of the chest Resp: COMMON NORMALS: normal respiratory effort and clear to auscultation bilaterally AUSCULTATION: clear to auscultation bilaterally Cardio: COMMON NORMALS: regular rate and regular rhythm RATE: regular rate RHYTHM: regular rhythm GI: COMMON NORMALS: Normal to inspection, nondistended, normoactive bowel sounds present, Soft to palpation, No hepatosplenomegaly present and no masses INSPECTION: Yes normal to inspection AUSCULTATION: Yes normoactive bowel sounds PALPATION: Yes Soft to palpation, Yes Tenderness to palpation present (GI) (mild tenderness epigastric/LUQ), No Guarding due to palpation present (GI), No Rigid due to palpation and Yes No hepatosplenomegaly present : COMMON NORMALS: Yes no CVA tenderness BLADDER/KIDNEY EXAM: Yes no CVA tenderness Back/Pelvis: COMMON NORMALS: no CVA tenderness and thoracic and lumbar spine normal to inspection Extremity: COMMON NORMALS: normal to inspection, no clubbing, cyanosis or edema, no calf tenderness and no pedal edema GENERAL: Yes normal exam except as noted Neuro: COMMON NORMALS: patient oriented x3 SENSORIUM/ORIENTATION: Yes alert MENINGEAL SIGNS: Yes no meningeal signs Skin: COMMON NORMALS: no rashes or lesions noted GENERAL SKIN EXAM: no rashes or lesions noted Course 2 Vital Signs: Vital signs: Vital Signs Temperature 98.3 F 12/13/24 08:28 Pulse Rate 73 12/13/24 08:28 Respiratory Rate 18 12/13/24 08:28 Blood Pressure 133/84 12/13/24 08:28 Pulse Oximetry 98 12/13/24 08:28 Oxygen Delivery Me thod Room Air 12/13/24 08:28 MDM - Abdominal Pain Medical Decision Making Patient here with fairly constant epigastric pain over the past week. Pain is easily reproduced with palpation to his epigastric/left upper quadrant of his abdomen. Abdominal examination is nonsurgical. He clinically appears in no acute distress with stable vital signs. His blood work overall is nonactionable. His lipase is normal. He has isolated hyperbilirubinemia 1.8. He has had this previously and is having Dr. Chicas for this. Patient has no RUQ abdominal pain. Remainder of LFTs are unremarkable. Patient has chronic GERD for which he takes omeprazole. I suspect the symptoms are GI related. Will have him increase his omeprazole to twice daily and place him on Carafate. Dietary restrictions discussed. Will have him discontinue his Aleve as listed on his medication list. He is requesting general surgery/GI follow-up for endoscopy evaluation which I feel is appropriate. Return ED precautions given. Medical Records I reviewed the patient's medical records. Lab Data I reviewed the patient's lab results. 12/13/24 09:16 12/13/24 09:16 Labs/Radiology: Laboratory Results WBC 8.25 10^3/uL (3.29-11.43) 12/13/24 09:16 RBC 5.45 10^6/uL (3.85-5.65) 12/13/24 09:16 Hgb 16.90 g/dL (11.27-16.99) 12/13/24 09:16 Hct 50.1 % (37-53) 12/13/24 09:16 MCV 91.9 fl (82-101) 12/13/24 09:16 MCH 31.0 pg (27-33) 12/13/24 09:16 MCHC 33.7 g/dL (30-55) 12/13/24 09:16 RDW 12.7 % (12.1-15.1) 12/13/24 09:16 Plt Count 275 10^3/cmm (157-399) 12/13/24 09:16 MPV 10.5 fL (7.4-10.4) H 12/13/24 09:16 Neut % (Auto) 74.8 % 12/13/24 09:16 Lymph % (Auto) 17.0 % 12/13/24 09:16 [place] % (Auto) 5.9 % 12/13/24 09:16 Eos % (Auto) 1.6 % 12/13/24 09:16 Baso % (Auto) 0.5 % 12/13/24 09:16 Neut # (Auto) 6.17 10^3/uL (1.8-7.7) 12/13/24 09:16 Lymph # (Auto) 1.4 10^3/uL (0.8-4.8) 12/13/24 09:16 [place] # (Auto) 0.5 10^3/uL (0.2-0.9) 12/13/24 09:16 Eos # (Auto) 0.1 10^3/uL (0.0-0.8) 12/13/24 09:16 Baso # (Auto) 0.0 10^3/uL (0.0-0.1) 12/13/24 09:16 Nucleated RBC % (auto) 0 % 12/13/24 09:16 Nucleated RBCs # 0.0 /100WBC 12/13/24 09:16 Sodium 136 mmol/L (136-145) 12/13/24 09:16 Potassium 4.3 mmol/L (3.5-5.1) 12/13/24 09:16 Chloride 98 mmol/L (98-107) 12/13/24 09:16 Carbon Dioxide 23 mmol/L (22-29) 12/13/24 09:16 Anion Gap 19.3 (5-19) H 12/13/24 09:16 BUN 21 mg/dL (6-20) H 12/13/24 09:16 Creatinine 1.0 mg/dL (0.7-1.2) 12/13/24 09:16 GFR Calculation 77.9 mL/min (90-130) L 12/13/24 09:16 Glucose 101 mg/dL (65-115) 12/13/24 09:16 Calculated Osmolality 285 mOsm/kg (285-295) 12/13/24 09:16 Calcium 9.3 mg/dL (8.5-10.5) 12/13/24 09:16 Total Bilirubin 1.8 mg/dL (0.15-1.2) H 12/13/24 09:16 AST 23 U/L (0-40) 12/13/24 09:16 ALT 27 U/L (0-41) 12/13/24 09:16 Alkaline Phosphatase 76 U/L (40-130) 12/13/24 09:16 Total Protein 7.2 g/dL (6.6-8.7) 12/13/24 09:16 Albumin 4.5 g/dL (3.5-5.2) 12/13/24 09:16 Globulin 2.7 g/dL (1.3-4.6) 12/13/24 09:16 Lipase 37 U/L (13-60) 12/13/24 09:16 Urine Color Yellow (Yellow) 12/13/24 08:30 Urine Appearance Clear (CLEAR) 12/13/24 08:30 Urine pH 5.5 (5-7) 12/13/24 08:30 Ur Specific [place] 1.028 (1.005-1.030) 12/13/24 08:30 Urine Protein Negative (Negative) 12/13/24 08:30 Urine Glucose (UA) Negative (Normal) 12/13/24 08:30 Urine Ketones 2+ (Negative) H 12/13/24 08:30 Urine Blood Negative (Negative) 12/13/24 08:30 Urine Nitrate Negative (Negative) 12/13/24 08:30 Urine Bilirubin Negative (Negative) 12/13/24 08:30 Urine Urobilinogen 0.2 mg/dL (Negative) 12/13/24 08:30 Ur Leukocyte Esterase Negative (Negative) 12/13/24 08:30 Urine RBC 0-2 /hpf (0-2) 12/13/24 08:30 Urine WBC 0-5 /hpf (0-5) 12/13/24 08:30 Ur Squamous Epith Cells 0-5 /hpf (0-5) 12/13/24 08:30 Amorphous Sediment Not Reportable 12/13/24 08:30 Urine Bacteria None seen /hpf (NONE) 12/13/24 08:30 Hyaline Casts 0.40 /lpf 12/13/24 08:30 No radiology studies performed this visit Discharge Plan Discharge Patient Disposition: Home Clinical Impression: Epigastric pain Condition: Stable Prescriptions: New sucralfate [Carafate] 1 gram tablet 1 g PO TID 14 Days Qty: 42 0RF Discontinued naproxen sodium [Aleve] 220 mg Tablet 220 mg PO BID PRN (Reason: Pain) No Action multivitamin Tablet 1 tab PO QAM omeprazole 20 mg Capsule,Delayed Release(Dr/Ec) 20 mg PO DAILY Discharge Orders: Discharge ED (Routine); Ordered 12/13/24 Ordered By: Franny Andrews Referrals: Alfredo Rowland [Primary Care Provider] - Patient Instructions: Abdominal Pain (ED) Activity Restrictions/Additional Instructions: As we discussed, increase your omeprazole to 20 Mg twice daily. I will start you on Carafate. Avoid taking the Aleve that was listed on your medication list. We will have you follow-up with general surgery/GI for further evaluation of your epigastric pain possible evaluation for an endoscopy. Avoid spicy, salty, acidic foods. You need to return to the emergency department for worsening abdominal pain, chest pain, vomiting blood, generally feeling worse or unwell, or any other concerns you may have. I hope you begin to feel better soon. Coding Level of Care Code ED Foreign Car Mechanic for Ame Gaytan
[2024-12-13] MEDS: lidocaine 2% viscous 15 ML, aluminum-mag hydrox-simethicon 30 ML, sucralfate oral liq 1 GM PO (09:21)
[2024-12-13 09:29] LABS: Bilirubin Urine Negative (Negative); Blood Urine Negative (Negative); Glucose Urine UA Negative (Normal); Ketones Urine 2+ (Negative); Leukocyte Esterase Urine Negative (Negative); Nitrate Urine Negative (Negative); Protein Urine Negative (Negative); Specific Gravity, Urine 1.028 (1.005-1.030); Urine Appearance Clear (CLEAR); Urine Color Yellow (Yellow); Urobilinogen Urine 0.2 mg/dL (Negative); pH Urine 5.5 (5-7)
[2024-12-13 09:29] LABS: Basophils % 0.5 %; Eosinophils # 0.1 10^3/uL (0.0-0.8); Eosinophils % 1.6 %; Hematocrit 50.1 % (37-53); Lymphocytes # 1.4 10^3/uL (0.8-4.8); Mean Corpuscular HGB Conc 33.7 g/dL (30-55); Mean Corpuscular Volume 91.9 fl (82-101); Mean Platelet Volume 10.5 fL (7.4-10.4); Monocytes # 0.5 10^3/uL (0.2-0.9); Monocytes % 5.9 %; Neutrophils # 6.17 10^3/uL (1.8-7.7); Neutrophils % 74.8 %; Nucleated Red Blood Cells % 0 %; Platelet Count 275 10^3/cmm (157-399); Red Blood Count 5.45 10^6/uL (3.85-5.65); Red Cell Distribution Width 12.7 % (12.1-15.1); White Blood Count 8.25 10^3/uL (3.29-11.43)
[2024-12-13 09:35] LABS: Add Urine Microscopic? YES; Bacteria Urine None Seen /hpf; RBC Urine 0-2 /hpf (0-2); Squamous Epithelial Cell Urine 0-5 /hpf (0-5); WBC Urine 0-5 /hpf (0-5)
[2024-12-13 09:50] LABS: Alanine Aminotransferase 27 U/L (0-41); Albumin Level 4.5 g/dL (3.5-5.2); Alkaline Phosphatase 76 U/L (40-130); Anion Gap 19.3 (5-19); Aspartate Amino Transferase 23 U/L (0-40); Blood Urea Nitrogen 21 mg/dL (6-20); Calcium 9.3 mg/dL (8.5-10.5); Carbon Dioxide 23 mmol/L (22-29); Chloride 98 mmol/L (98-107); Creatinine Clr Calc Pharmacy 99.3047; Globulin 2.7 g/dL (1.3-4.6); Glomerular Filtration Rate 77.9 mL/min (90-130); Glucose 101 mg/dL (65-115); Lipase 37 U/L (13-60); Osmolality Calculated 285 mOsm/kg (285-295); Potassium 4.3 mmol/L (3.5-5.1); Sodium 136 mmol/L (136-145); Total Bilirubin 1.8 mg/dL (0.15-1.2); Total Protein 7.2 g/dL (6.6-8.7)
[2024-12-13 10:11] VITALS: BP 133/77; RESP 16; O2SAT 96
[2024-12-13 11:16] VITALS: BP 143/87; PULSE 60; O2SAT 97
[2024-12-13 11:22] VITALS: BP 143/87; PULSE 60; O2SAT 97
--- NOTE | 2024-12-15 09:27 | DCPLANNER ---
Message sent to General surgery
== END 2024-12-13 11:22 | disposition home or self-care (01) ==
PROVIDERS: Emergency Provider Physician Assistant; PCP Nurse Practitioner Family
DX: R10.13 Epigastric pain (principal); Z87.891 Personal history of nicotine dependence; I10 Essential (primary) hypertension
CPT/HCPCS: 80053; 81001; 83690; 85025; 99283

== ENCOUNTER 2024-12-31 08:19 | Outpatient (CLI) | payer BC, MEDICAID, SELFPAY ==
--- NOTE | 2024-12-31 08:30 | US_ITS ---
WS: [id number] RIGHT UPPER QUADRANT ULTRASOUND HISTORY: epigastric pain COMPARISON: 12/30/2021 Liver: 16.5 cm in length. Normal size liver and echogenicity. No bile duct dilatation or mass. Portal Vein: Normal hepatopetal flow with monophasic waveform. Gallbladder: Normally distended gallbladder with no stones or wall thickening. CBD: 0.3 cm Pancreas: Not visualized. Right kidney: 9.8 cm in length. Normal size and echogenicity. No hydronephrosis or mass. Aorta and IVC: Unremarkable abdominal aorta and IVC. No ascites. US/US gall bladder [id number] IMPRESSION: Normal right upper quadrant ultrasound.
== END 2024-12-31 08:20 | disposition home or self-care (01) ==
PROVIDERS: PCP Nurse Practitioner Family; Visit Provider Surgery
DX: R10.13 Epigastric pain (principal)
CPT/HCPCS: 76705

== ENCOUNTER 2025-06-14 12:48 | Emergency (ER) | payer BC, MEDICAID, SELFPAY ==
[2025-06-14 12:54] VITALS: BP 147/91; PULSE 61; RESP 16; TEMP 36.7; O2SAT 98
--- OUTSIDE RECORDS SUMMARY | 2025-06-14 12:58 | XMS_ITS | Encounter Summary ---
Author Organization [facility] Address [address] [place] [address] Care Team Providers Care Film Flat Inspector Name Role Phone Wiley Lanier MD Primary Care Provider [phone] Encounter Details Date Type Department Care Team (Late st Contact Info) Description 05/18/2018 Lab Requisition [facility] Services [place] [address] [place] [address] Praneeth Rapp, DO NO ADDRESS ON FILE Social History Tobacco Use Types Packs/Day Years Used Date Smoking Tobacco: Never Smokeless Tobacco: Never Alcohol Use Standard Drinks/Week Comments Yes 0 (1 standard drink = 0.6 oz pur e alcohol) occasional Sex and Gender Information Value Date Recorded Sex Assigned at Not on file 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 Gender Identity Not on file Sexual Orientation Not on file documented as of this encounter Plan of Treatment Not on file documented as of this encounter Procedures Procedure Name Priority Date/Time Associated Diagnosis Comments LIPID PANEL Routine 05/18/2018 9:00 PM CDT BASIC METABOLIC PANEL Routine 05/18/2018 9:00 PM CDT documented in this encounter Results * (ABNORMAL) LIPID PANEL (05/18/2018 9:00 PM CDT) CHOLESTEROL 237(H) <200 mg/dL 05/19/2018 12:07 AM CDT [facility] TRIGLYCERIDE 100 <150 mg/dL 05/19/2018 12:07 AM CDT [facility] HDL 40 40 - 59 mg/dL 05/19/2018 12:07 AM [facility] LDL CALCULATED 177(H) <100 mg/dL 05/19/2018 12:07 AM [facility] NON-HDL CHOLESTEROL 197(H) <130 mg/dL 05/19/2018 12:07 AM [facility] Blood Collection / Unknown 05/18/2018 9:00 PM T 05/18/2018 11:03 PM CDT [facility] - 05/19/2018 12:07 AM CDT TOTAL CHOLESTEROL mg/dL Desirable <200 Borderline high 200-239 High >=240 TRIGLYCERIDES mg/dL Normal <150 Borderline high 150-199 High 200-499 Very high >=500 HDL CHOLESTEROL mg/dL Low <40 Normal 40-59 Desirable >=60 NON HDL CHOLESTEROL mg/dL Optimal <130 Near Optimal 130-159 Borderline High 160-189 Very High >=190 Calculated LDL mg/dL Optimal <100 Near Optimal 100-129 Borderline High 130-159 High 160-189 Very High >=190 ATPIII Guidelines Reference Ranges for Lipid Panels (NCEP/AMA) us Praneeth Rapp DO CHEMISTRY ORDERABLES Final Resu lt [facility] CLIA # [id number] [address] [place] [id number] * (ABNORMAL) BASIC METABOLIC PANEL (05/18/2018 9:00 PM CDT) SODIUM 132(L) 136 - 145 mmol/L 05/19/2018 12:06 AM [facility] POTASSIUM 4.6 3.5 - 5.1 mmol/L 05/19/2018 12:06 AM [facility] CHLORIDE 93(L) 98 - 107 mmol/L 05/19/2018 12:06 AM [facility] CO2 20(L) 22 - 29 mmol/L 05/19/2018 12:06 AM [facility] CALCIUM 9.5 8.6 - 10.0 mg/dL 05/19/2018 12:06 AM [facility] BUN 21(H) 6 - 20 mg/dL 05/19/2018 12:06 AM [facility] CREATININE 1.15 0.67 - 1.17 mg/dL 05/19/2018 12:06 AM [facility] GLUCOSE 96 74 - 99 mg/dL 05/19/2018 12:06 AM [facility] GFR >60 >=60 mL/min/1.7 3 sq meter 05/19/2018 12:06 AM [facility] Comment: eGFR has not been validated for use in the elderly (> 70 years of age), women, patients with serious co-morbid conditions, or persons with extremes of body size or muscle mass and should also be interpreted with caution in patients with acute kidney failure, dialysis dependent patients, patients reporting exceptional dietary intake (e.g. vegetarian diet, high protein diets, creatine supplementation), and patients with severe liver disease. Based on National Kidney Disease Education Program If patient is , please refer to the GFR result. GFR, >60 >=60 mL/min/1.7 3 sq meter 05/19/2018 12:06 AM [facility] ANION GAP 19 12 - 20 mmol/L 05/19/2018 12:06 AM [facility] Blood Collection / Unknown 05/18/2018 9:00 PM CDT 05/18/2018 11:03 PM CDT Praneeth Rapp DO CHEMISTRY ORDERABLES Final Resu lt [facility] CLIA # [id number] [address] [address] documented in this encounter Visit Diagnoses Not on filedocumented in this encounter Care Teams Film Flat Inspector Relationship Specialty Start Date End Date Wiley Lanier MD [address] [phone] PCP - General Family Practice 01/12/21 documented as of this encounter
--- OUTSIDE RECORDS SUMMARY | 2025-06-14 12:58 | XMS_ITS | Encounter Summary ---
Author Organization [facility] Address [address] [place] [address] Care Team Providers Care Blanket Winder Helper Name Role Phone Wiley Lanier MD Primary Care Provider +1 [phone] Encounter Details Date Type Department Care Team (Latest Contact Info) Description 05/20/2005 Outpatient Historical [facility] Family Medicine- [place] [address] [place] [address] Rakel Campo MD NO ADDRESS ON FILE ESOPHAGEAL REFLUX (Primary Dx) Social History Tobacco Use Types Packs/Day Years Used Date Smoking Tobacco: Never Assessed Sex and Gender Information Value Date Recorded Sex Assigned at Not on file 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
--- OUTSIDE RECORDS SUMMARY | 2025-06-14 12:58 | XMS_ITS | Encounter Summary ---
Author Organization [facility] Address [address] [place] [address] Care Team Providers Care Mechanical Assembly Name Role Phone Wiley Lanier MD Primary Care Provider +1 [phone] Encounter Details Date Type Department Care Team (Late st Contact Info) Description 05/11/2018 Lab Requisition [facility] Laboratory Services [place] [address] [place] [address] Kiesha Maynard, AERODYNAMICS PROFESSOR [address] [place] [place] [address] Social History Tobacco Use Types Packs/Day Years Used Date Smoking Tobacco: Never Smokeless Tobacco: Never Alcohol Use Standard Drinks/Week Comments Yes 0 (1 standard drink = 0.6 oz pur e alcohol) occasional Sex and Gender Information Value Date Recorded Sex Assigned at Not on file 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 Gender Identity Not on file Sexual Orientation Not on file documented as of this encounter Plan of Treatment Not on file documented as of this encounter Procedures Procedure Name Priority Date/Time Associated Diagnosis Comments CBC WITH DIFFERENTIAL Routine 05/11/2018 9:00 PM CDT LIPID PANEL Routine 05/11/2018 9:00 PM CDT COMPREHENSIVE METABOLIC PANEL Routine 05/11/2018 9:00 PM CDT documented in this encounter Results * (ABNORMAL) CBC WITH DIFFERENTIAL (05/11/2018 9:00 PM CDT) WBC 9.9(H) 4.2 - 9.1 K/uL 05/11/2018 11:46 PM [facility] RBC 5.32 4.63 - 6.08 M/uL 05/11/2018 11:46 PM [facility] HEMOGLOBIN 16.4 13.7 - 17.5 g/dL 05/11/2018 11:46 PM [facility] HEMATOCRIT 49.2 40.1 - 51.0 % 05/11/2018 11:46 PM [facility] MCV 92.5(H) 79.0 - 92.2 fL 05/11/2018 11:46 PM [facility] MCH 30.8 25.7 - 32.2 pg 05/11/2018 11:46 PM [facility] MCHC 33.3 32.3 - 36.5 g/dL 05/11/2018 11:46 PM [facility] RDW 13.6 11.0 - 14.5 % 05/11/2018 11:46 PM [facility] RDW-STDEV 44.5 36.9 - 56.9 fL 05/11/2018 11:46 PM [facility] PLATELETS 235 130 - 400 K/uL 05/11/2018 11:46 PM [facility] MPV 12.2 10.0 - 14.8 fL 05/11/2018 11:46 PM [facility] NEUTROPHILS 60 34 - 68 % 05/11/2018 11:46 PM [facility] LYMPHOCYTES 28 22 - 53 % 05/11/2018 11:46 PM [facility] MONOCYTES 8 5 - 12 % 05/11/2018 11:46 PM [facility] EOSINOPHILS 4 1 - 7 % 05/11/2018 11:46 PM [facility] BASOPHILS 0 0 - 1 % 05/11/2018 11:46 PM [facility] IMMATURE GRANULOCYTES 0 % 05/11/2018 11:46 PM [facility] NEUTROPHIL ABSOLUTE 5.98(H) 1.78 - 5.38 K/uL 05/11/2018 11:46 PM CDT [facility] LYMPHOCYTE ABSOLUTE 2.74 1.20 - 3.40 K/uL 05/11/2018 11:46 PM T [facility] MONOCYTE ABSOLUTE 0.79 0.30 - 0.82 K/uL 05/11/2018 11:46 PM [facility] EOSINOPHIL ABSOLUTE 0.36 0.04 - 0.54 K/uL 05/11/2018 11:46 PM T [facility] BASOPHILS ABSOLUTE 0.04 0.01 - 0.08 K/uL 05/11/2018 11:46 PM [facility] IMMATURE GRANULOCYTES ABSOLUTE 0.02 K/uL 05/11/2018 11:46 PM [facility] Blood Collection / Unknown 05/11/2018 9:00 PM CDT 05/11/2018 10:49 PM CDT Kiesha Maynard AERODYNAMICS PROFESSOR HEMATOLOGY ORDERABLES Fin al Result [facility] CLIA # [id number] [address] [place] [address] * (ABNORMAL) COMPREHENSIVE METABOLIC PANEL (05/11/2018 9:00 PM CDT) SODIUM 138 136 - 145 mmol/L 05/11/2018 11:52 PM [facility] POTASSIUM 4.1 3.5 - 5.1 mmol/L 05/11/2018 11:52 PM [facility] CHLORIDE 101 98 - 107 mmol/L 05/11/2018 11:52 PM [facility] CO2 25 22 - 29 mmol/L 05/11/2018 11:52 PM [facility] CALCIUM 10.0 8.6 - 10.0 mg/dL 05/11/2018 11:52 PM [facility] BUN 21(H) 6 - 20 mg/dL 05/11/2018 11:52 PM [facility] CREATININE 1.05 0.67 - 1.17 mg/dL 05/11/2018 11:52 PM [facility] GLUCOSE 96 74 - 106 mg/dL 05/11/2018 11:52 PM [facility] TOTAL PROTEIN 7.4 6.6 - 8.7 g/dL 05/11/2018 11:52 PM [facility] ALBUMIN 4.7 3.5 - 5.2 g/dL 05/11/2018 11:52 PM [facility] BILIRUBIN TOTAL 0.7 0.0 - 1.2 mg/dL 05/11/2018 11:52 PM [facility] ALKALINE PHOSPHATASE 84 40 - 129 U/L 05/11/2018 11:52 PM [facility] AST 32 10 - 50 U/L 05/11/2018 11:52 PM [facility] ALT 33 10 - 50 U/L 05/11/2018 11:52 PM [facility] GFR >60 >=60 mL/min/1.7 3 sq meter 05/11/2018 11:52 PM [facility] Comment: eGFR has not been validated for [...] GFR, >60 >=60 mL/min/1.7 3 sq meter 05/11/2018 11:52 PM [facility] ANION GAP 12 12 - 20 mmol/L 05/11/2018 11:52 PM [facility] Blood Collection / Unknown 05/11/2018 9:00 PM CDT 05/11/2018 10:49 PM CDT us Kiesha TREVINO CHEMISTRY ORDERABLES Tere sanchez Result [facility] CLIA # [id number] [address] [place] [address] * (ABNORMAL) LIPID PANEL (05/11/2018 9:00 PM CDT) CHOLESTEROL 377(H) <200 mg/dL 05/11/2018 11:45 PM T [facility] TRIGLYCERIDE >885(H) <150 mg/dL 05/11/2018 11:45 PM T [facility] HDL 40 - 59 mg/dL 05/11/2018 11:45 PM T [facility] Comment: Measured HDL is not accurate when the Triglyceride value exceeds 700. LDL CALCULATED <100 mg/dL 05/11/2018 11:45 PM [facility] Comment:Calculated LDL is no t accurate when the Triglyceride value exceeds 400. NON-HDL CHOLESTEROL <130 mg/dL 05/11/2018 11:45 PM [facility] Comment:Non HDL Cholesterol cannot be calculated when the HDL value is suppressed. Blood Collection / Unknown 05/11/2018 9:00 PM CDT 05/11/2018 10:49 PM CDT Narrative [facility] - 05/11/2018 11:45 PM CDT TOTAL CHOLESTEROL mg/dL Desirable <200 Borderline [...] Guidelines Reference Ranges for Lipid Panels (NCEP/AMA) Kiesha GARCIAP CHEMISTRY ORDERABLES Tere sanchez Result [facility] CLIA # [id number] [address] [place] [address] documented in this encounter Visit Diagnoses Not on filedocumented in this encounter Care Teams Mechanical Assembly Relationship Specialty Start Date End Date Wiley Lanier MD [address] [address] PCP - General Family Practice 01/12/21 documented as of this encounter
--- OUTSIDE RECORDS SUMMARY | 2025-06-14 12:58 | XMS_ITS | Encounter Summary ---
Author Organization [facility] Address [address] [place] [address] Care Team Providers Care Bore Miner Operator Name Role Phone Wiley Lanier MD Primary Care Provider [phone] [phone] Encounter Details Date Type Department Care Team (Late st Contact Info) Description 11/22/2019 Lab Requisition [facility] Laboratory Services [place] [address] [place] [address] Yanira Ramos, EMISSIONS TESTING TECHNICIAN [address] [place] [address] Social History Tobacco Use Types Packs/Day Years Used Date Smoking Tobacco: Former Smokeless Tobacco: Never Alcohol Use Standard Drinks/Week Comments No 0 (1 standard drink = 0.6 oz pur e alcohol) Sex and Gender Information Value Date Recorded Sex Assigned at Not on file 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 POTASSIUM 4.2 3.5 - 5.1 mmol/L 11/22/2019 9:51 PM [facility] CHLORIDE 101 98 - 107 mmol/L 11/22/2019 9:51 PM [facility] CO2 28 22 - 29 mmol/L 11/22/2019 9:51 PM [facility] CALCIUM 9.3 8.6 - 10.0 mg/dL 11/22/2019 9:51 PM [facility] BUN 15 6 - 20 mg/dL 11/22/2019 9:51 PM [facility] CREATININE 1.00 0.67 - 1.17 mg/dL 11/22/2019 9:51 PM [facility] GLUCOSE 93 74 - 99 mg/dL 11/22/2019 9:51 PM [facility] GFR >60 >=60 mL/min/1.7 3 sq meter 11/22/2019 9:51 PM [facility] Comment: eGFR has not been validated [...] GFR, >60 >=60 mL/min/1.7 3 sq meter 11/22/2019 9:51 PM [facility] ANION GAP 11(L) 12 - 20 mmol/L 11/22/2019 9:51 PM [facility] Blood Collection / Unknown 11/22/2019 8:28 PM FURNACE SETTER 11/22/2019 8:49 PM FURNACE SETTER Yanira TREVINO CHEMISTRY ORDERABLES Final Result [facility] CLIA # [id number] [address] [place] [address] documented in this encounter Visit Diagnoses Not on filedocumented in this encounter Care Teams Bore Miner Operator Relationship Specialty Start Date End Date Wiley Lanier MD [address] [address] PCP - General Family Practice 01/12/21 documented as of this encounter
--- OUTSIDE RECORDS SUMMARY | 2025-06-14 12:58 | XMS_ITS | Encounter Summary ---
Author Organization [facility] Address [address] [place] [address] Care Team Providers Care Setter Up Name Role Phone Wiley Lanier MD Primary Care Provider [phone] [phone] Encounter Details Date Type Department Care Team (Late st Contact Info) Description 07/20/2018 Lab Requisition [facility] Laboratory Services [place] [address] [place] [address] Praneeth Rapp, DO NO ADDRESS ON FILE Social History Tobacco Use Types Packs/Day Years Used Date Smoking Tobacco: Never Smokeless Tobacco: Never Alcohol Use Standard Drinks/Week Comments Yes 0 (1 standard drink = 0.6 oz pur e alcohol) occasional Sex and Gender Information Value Date Recorded Sex Assigned at Not on file Legal Sex Male 3:[address]PRETER Gender Identity Not on file Sexual Orientation Not on file documented as of this encounter Plan of Treatment Not on file documented as of this encounter Procedures Procedure Name Priority Date/Time Associated Diagnosis Comments ALT Routine 07/20/2018 10:10 PM CDT LIPID PANEL Routine 07/20/2018 10:10 PM CDT BASIC METABOLIC PANEL Routine 07/20/2018 10:10 PM CDT documented in this encounter Results * ALT (07/20/2018 10:10 PM CDT) ALT 19 10 - 50 U/L 07/21/2018 5:44 AM CDT [facility] Blood Collection / Unknown 07/20/2018 10:10 PM CDT 07/21/2018 4:26 AM CDT us Praneeth Rapp DO CHEMISTRY ORDERABLES Final Resu lt [facility] # [id number] [address] [place] [id number] * (ABNORMAL) BASIC METABOLIC PANEL (07/20/2018 10:10 PM CDT) SODIUM 140 136 - 145 mmol/L 07/21/2018 5:44 AM T [facility] POTASSIUM 4.4 3.5 - 5.1 mmol/L 07/21/2018 5:44 AM [facility] CHLORIDE 98 98 - 107 mmol/L 07/21/2018 5:44 AM T [facility] CO2 23 22 - 29 mmol/L 07/21/2018 5:44 AM [facility] CALCIUM 10.0 8.6 - 10.0 mg/dL 07/21/2018 5:44 AM [facility] BUN 18 6 - 20 mg/dL 07/21/2018 5:44 AM [facility] CREATININE 1.13 0.67 - 1.17 mg/dL 07/21/2018 5:44 AM [facility] GLUCOSE 100(H) 74 - 99 mg/dL 07/21/2018 5:44 AM [facility] GFR >60 >=60 mL/min/1.7 3 sq meter 07/21/2018 5:44 AM [facility] Comment: eGFR has not been validated [...] GFR, >60 >=60 mL/min/1.7 3 sq meter 07/21/2018 5:44 AM CDT [facility] ANION GAP 19 12 - 20 mmol/L 07/21/2018 5:44 AM CDT [facility] Blood Collection / Unknown 07/20/2018 10:10 PM CDT 07/21/2018 4:26 AM CDT us Praneeth Rapp DO CHEMISTRY ORDERABLES Final Resu lt [facility] CLIA # [id number] [address] [place] [address] * (ABNORMAL) LIPID PANEL (07/20/2018 10:10 PM CDT) CHOLESTEROL 233(H) <200 mg/dL 07/21/2018 5:45 AM CDT [facility] TRIGLYCERIDE 170(H) <150 mg/dL 07/21/2018 5:45 AM CDT [facility] HDL 53 40 - 59 mg/dL 07/21/2018 5:45 AM CDT [facility] LDL CALCULATED 146(H) <100 mg/dL 07/21/2018 5:45 AM T [facility] NON-HDL CHOLESTEROL 180(H) <130 mg/dL 07/21/2018 5:45 AM CDT [facility] Blood Collection / Unknown 07/20/2018 10:10 PM CDT 07/21/2018 4:26 AM CDT Narrative [facility] - 07/21/2018 5:45 AM CDT TOTAL CHOLESTEROL mg/dL Desirable <200 [...] Rapp DO CHEMISTRY ORDERABLES Final Resu lt [facility] # [id number] [address] [address] documented in this encounter Visit Diagnoses Not on filedocumented in this encounter Care Teams Setter Up Relationship Specialty Start Date End Date Wiley Lanier MD [address] [phone] PCP - General Family Practice 01/12/21 documented as of this encounter
--- OUTSIDE RECORDS SUMMARY | 2025-06-14 12:58 | XMS_ITS | Encounter Summary ---
Author Organization [facility] Address [address] [place] [address] Care Team Providers Care Oilfield Plant And Field Operator Name Role Phone Wiley Lanier MD Primary Care Provider [phone] [phone] Encounter Details Date Type Department Care Team (Latest Contact Info) Description 05/15/2005 Outpatient Historical [facility] Family Medicine- [place] [address] [place] [address] Pantera Miller NP NO ADDRESS ON FILE Dermatitis due to plant (Primary Dx) Social History Tobacco Use Types Packs/Day Years Used Date Smoking Tobacco: Never Assessed Sex and Gender Information Value Date Recorded Sex Assigned at Not on file 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
--- OUTSIDE RECORDS SUMMARY | 2025-06-14 12:58 | XMS_ITS | Encounter Summary ---
Author Organization [facility] Address [address] [place] [address] Care Team Providers Care Obstetrical Nurse Name Role Phone Wiley Lanier MD Primary Care Provider [phone] [phone] Encounter Details Date Type Department Care Team (Late st Contact Info) Description 01/15/2021 Lab Requisition [facility] Laboratory Services [place] [address] [facility] [address] [place] [address] Praneeth Rapp, DO NO ADDRESS ON FILE Social History Tobacco Use Types Packs/Day Years Used Date Smoking Tobacco: Former Smokeless Tobacco: Never Alcohol Use Standard Drinks/Week Comments No 0 (1 standard drink = 0.6 oz pur e alcohol) Sex and Gender Information Value Date Recorded Sex Assigned at Not on file Legal 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 No / Unsure 01/15/2021 12:20 PM TAR LEVELER documented as of this encounter Plan of Treatment Not on file documented as of this encounter Visit Diagnoses Not on filedocumented in this encounter Care Teams Obstetrical Nurse Relationship Specialty Start Date End Date Wiley Lanier MD [address] [place] [address] PCP - General Family Practice 01/12/21 documented as of this encounter
--- OUTSIDE RECORDS SUMMARY | 2025-06-14 12:58 | XMS_ITS | Encounter Summary ---
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
--- OUTSIDE RECORDS SUMMARY | 2025-06-14 12:58 | XMS_ITS | Encounter Summary ---
Author Organization [facility] Address [address] [place] [address] Care Team Providers Care Bee Farmer Name Role Phone Wiley Lanier MD Primary Care Provider [phone] [phone] Encounter Details Date Type Department Care Team (Latest Contact Info) Description 04/12/2005 Outpatient Historical [facility] Family Medicine- [place] [address] [place] [address] Rakel Campo MD NO ADDRESS ON FILE ESOPHAGEAL REFLUX (Primary Dx) Social History Tobacco Use Types Packs/Day Years Used Date Smoking Tobacco: Never Assessed Sex and Gender Information Value Date Recorded Sex Assigned at Not on file Legal 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
--- OUTSIDE RECORDS SUMMARY | 2025-06-14 12:58 | XMS_ITS | Encounter Summary ---
Author Organization [facility] Address [address] [place] [address] Care Team Providers Care Global Recruiter Name Role Phone Wiley Lanier MD Primary Care Provider [phone] [phone] Encounter Details Date Type Department Care Team (Late st Contact Info) Description 04/28/2017 Lab Requisition [facility] General Laboratory Services [place] [address] [place] [address] Hira Porter, PA [address] [place] [address] Social History Tobacco Use Types Packs/Day Years Used Date Smoking Tobacco: Never Assessed Sex and Gender Information Value Date Recorded Sex Assigned at Not on file 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 Gender Identity Not on file Sexual Orientation Not on file documented as of this encounter Plan of Treatment Not on file documented as of this encounter Procedures Procedure Name Priority Date/Time Associated Diagnosis Comments CBC WITH DIFFERENTIAL Routine 04/28/2017 9:29 PM CDT LIPID PANEL Routine 04/28/2017 9:29 PM CDT COMPREHENSIVE METABOLIC PANEL Routine 04/28/2017 9:29 PM CDT documented in this encounter Results * (ABNORMAL) LIPID PANEL (04/28/2017 9:29 PM CDT) CHOLESTEROL 165 <200 mg/dL 04/29/2017 12:52 AM CDT [facility] TRIGLYCERIDE 157(H) <150 mg/dL 04/29/2017 12:52 AM CDT [facility] HDL 51 40 - 59 mg/dL 04/29/2017 12:52 AM T [facility] LDL CALCULATED 83 <100 mg/dL 04/29/2017 12:52 AM T [facility] NON-HDL CHOLESTEROL 114 <130 mg/dL 04/29/2017 12:[address] [facility] Blood Venipuncture / Unknown 04/28/2017 9:29 PM CDT 04/28/2017 11:37 PM CDT [facility] - 04/29/2017 12:52 AM CDT TOTAL CHOLESTEROL mg/dL Desirable <200 [...] Guidelines Reference Ranges for Lipid Panels (NCEP/AMA) Hira BROWNING CHEMISTRY ORDERABLES Final R esult [facility] CLIA # [id number] [address] [place] [address] * (ABNORMAL) COMPREHENSIVE METABOLIC PANEL (04/28/2017 9:29 PM CDT) SODIUM 140 136 - 145 mmol/L 04/29/2017 12:52 AM CDT [facility] POTASSIUM 4.3 3.5 - 5.1 mmol/L 04/29/2017 12:52 AM T [facility] CHLORIDE 99 98 - 107 mmol/L 04/29/2017 12:52 AM T [facility] CO2 24 22 - 29 mmol/L 04/29/2017 12:52 AM T [facility] CALCIUM 9.7 8.6 - 10.0 mg/dL 04/29/2017 12:[address] [facility] BUN 21(H) 6 - 20 mg/dL 04/29/2017 12:[address] [facility] CREATININE 1.26(H) 0.67 - 1.17 mg/dL 04/29/2017 12:[address] [facility] GLUCOSE 92 74 - 106 mg/dL 04/29/2017 12:[address] [facility] TOTAL PROTEIN 7.9 6.6 - 8.7 g/dL 04/29/2017 12:[address] [facility] ALBUMIN 4.9 3.5 - 5.2 g/dL 04/29/2017 12:[address] [facility] BILIRUBIN TOTAL 1.5(H) 0.0 - 1.2 mg/dL 04/29/2017 12:[address] [facility] ALKALINE PHOSPHATASE 77 40 - 129 U/L 04/29/2017 12:[address] [facility] AST 25 10 - 50 U/L 04/29/2017 12:[address] [facility] ALT 25 10 - 50 U/L 04/29/2017 12:[address] [facility] GFR >60 >=60 mL/min/1.7 3 sq meter 04/29/2017 12:[address] [facility] Comment: eGFR has not been validated for [...] GFR, >60 >=60 mL/min/1.7 3 sq meter 04/29/2017 12:[address] [facility] ANION GAP 17 12 - 20 mmol/L 04/29/2017 12:[address] [facility] Blood Venipuncture / Unknown 04/28/2017 9:29 PM CDT 04/28/2017 11:37 PM CDT us Hira BROWNING CHEMISTRY ORDERABLES Final R esult [facility] CLIA # [id number] [address] [place] [address] * (ABNORMAL) CBC WITH DIFFERENTIAL (04/28/2017 9:29 PM CDT) WBC 9.9(H) 4.2 - 9.1 K/uL 04/29/2017 12:[address] [facility] RBC 5.21 4.63 - 6.08 M/uL 04/29/2017 12:[address] [facility] HEMOGLOBIN 16.2 13.7 - 17.5 g/dL 04/29/2017 12:[address] [facility] HEMATOCRIT 48.1 40.1 - 51.0 % 04/29/2017 12:[address] [facility] MCV 92.3(H) 79.0 - 92.2 fL 04/29/2017 12:[address] [facility] MCH 31.1 25.7 - 32.2 pg 04/29/2017 12:[address] [facility] MCHC 33.7 32.3 - 36.5 g/dL 04/29/2017 12:[address] [facility] RDW 13.3 11.0 - 14.5 % 04/29/2017 12:[address] [facility] RDW-STDEV 44.0 36.9 - 56.9 fL 04/29/2017 12:[address] [facility] PLATELETS 303 130 - 400 K/uL 04/29/2017 12:[address] [facility] MPV 11.3 10.0 - 14.8 fL 04/29/2017 12:[address] [facility] NEUTROPHILS 62 34 - 68 % 04/29/2017 12:[address] [facility] LYMPHOCYTES 28 22 - 53 % 04/29/2017 12:[address] [facility] MONOCYTES 7 5 - 12 % 04/29/2017 12:[address] [facility] EOSINOPHILS 3 1 - 7 % 04/29/2017 12:[address] [facility] BASOPHILS 1 0 - 1 % 04/29/2017 12:[address] [facility] IMMATURE GRANULOCYTES 0 % 04/29/2017 12:[address] [facility] NEUTROPHIL ABSOLUTE 6.17(H) 1.78 - 5.38 K/uL 04/29/2017 12:[address] [facility] LYMPHOCYTE ABSOLUTE 2.77 1.20 - 3.40 K/uL 04/29/2017 12:[address] [facility] MONOCYTE ABSOLUTE 0.66 0.30 - 0.82 K/uL 04/29/2017 12:[address] [facility] EOSINOPHIL ABSOLUTE 0.25 0.04 - 0.54 K/uL 04/29/2017 12:[address] [facility] BASOPHILS ABSOLUTE 0.05 0.01 - 0.08 K/uL 04/29/2017 12:[address] [facility] IMMATURE GRANULOCYTES ABSOLUTE 0.01 K/uL 04/29/2017 12:[address] [facility] Blood Venipuncture / Unknown 04/28/2017 9:29 PM CDT 04/28/2017 11:37 PM CDT Hira BROWNING HEMATOLOGY ORDERABLES Final Result [facility] CLIA # [id number] [address] [address] documented in this encounter Visit Diagnoses Not on filedocumented in this encounter Care Teams Global Recruiter Relationship Specialty Start Date End Date Wiley Lanier MD [address] [phone] PCP - General Family Practice 01/12/21 documented as of this encounter
--- OUTSIDE RECORDS SUMMARY | 2025-06-14 12:58 | XMS_ITS | Clinical Summary ---
Author Organization [facility] Address [address] [facility] [address] [place] [address] Phone Care Team Providers Care Ore Miner Name Role Phone Wiley Lanier MD Primary Care Provider [phone] [phone] Allergies No known active allergies Medications aspirin (ECOTRIN EC) 81 mg Tablet, Delayed Release (E.C.) Take 81 mg by mouth daily. Active fish oil-omega-3 fatty acids 340-1,000 mg Capsule Take 1 Capsule by mouth daily. Active multivitamin (DAILY-COLLEEN) tablet Take 1 Tablet by mouth daily. Active nitroglycerin (Nitrostat) 0.4 mg Tablet, Sublingual Place 1 Tablet (0.4 mg) under tongue every 5 minutes as needed for Chest Pain (If no relief after 2nd tab, call 911). 25 Tablet 3 1 Active diclofenac sodium (VOLTAREN) 75 mg Tablet, Delayed Release (E.C.)Indication s:Acute right-sided thoracic back pain Take 1 Tablet (75 mg) by mouth 2 times daily. 30 Tablet 1 Active cyclobenzaprine (FLEXERIL) 5 mg TabletIndication s:Acute right-sided thoracic back pain Take 1 Tablet (5 mg) by mouth 3 times daily as needed for Spasm. 30 Tablet 1 1 Active lisinopriL (PRINIVIL) 10 mg tablet Take 2 Tablets (20 mg) by mouth daily. 90 Tablet 3 1 Active fluticasone propionate (FLONASE) 50 mcg/spray [place], Suspension nasal inhalerIndicatio ns:Allergic rhinitis, unspecified seasonality, unspecified trigger Administer 2 Sprays in each nostril daily. 16 Gram 1 1 Active cetirizine (ZyrTEC) 10 mg tabletIndication s:Allergic rhinitis, unspecified seasonality, unspecified trigger Take 1 Tablet (10 mg) by mouth daily. 30 Tablet 1 1 Active Active Problems Problem Noted Date Diagnosed Date HTN (hypertension), benign 05/12/2019 Welders' keratitis of right eye Immunizations Immunization Administration Dates Next Due (ADACEL/BOOSTRIX)(10 YR UP) TDAP VACCINE, 0.5ML, IM 10/30/2016 INFLUENZA VACCINE QUADRIVALENT 6 MOS UP PF IM Family History Medical History Relation Name Comments Healthy Father Healthy Mother Relation Name Status Comments Father Alive Mother Alive Social History Tobacco Use Types Packs/Day Years Used Date Smoking Tobacco: Former Smokeless Tobacco: Never Alcohol Use Standard Drinks/Week Comments No 0 (1 standard drink = 0.6 oz pur e alcohol) Sex and Gender Information Value Date Recorded Sex Assigned at Not on file 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 Gender Identity Not on file Sexual Orientation Not on file Last Filed Vital Signs Vital Sign Reading Time Taken Comments Blood Pressure 133/84 03/22/2021 6:15 PM CDT Pulse 72 03/22/2021 5:00 PM CDT Temperature 36.8 C (98.2 F) 03/22/2021 4:41 PM CDT Respiratory Rate 19 03/22/2021 6:15 PM CDT Oxygen Saturation 98% 03/22/2021 6:15 PM CDT Inhaled Oxygen Concentration - - Weight 93.4 kg (205 lb 14.6 oz) 03/22/2021 4:41 PM CDT Height 185.4 cm (6' 1 ) 03/22/2021 4:41 PM CDT Body Mass Index 27.17 03/22/2021 4:41 PM CDT Plan of Treatment Health Maintenance Due Date Last Done Comments HEPATITIS B VACCINES (1 of 3 - 19+ 3-dose series) 1989 FIT-DNA Q 3 years 2015 FIT/FOBT Q 1 year 2015 Flex Sig/CT Colonography Q 5 years 2015 ZOSTER VACCINE (1 of 2) 2020 Pre-Diabetes and Diabetes Screening 04/20/202204/20 INFLUENZA VACCINE (#1) 2025 0, 04/20/2019, 04/20/2019 DTAP/TDAP/TD VACCINES (2 - T d or Tdap) 10/30/2026 10/30/2016 COLORECTAL SCREENING 08/20/2031 08/20/2021 Colorectal Cancer Screening 08/20/2031 Procedures Procedure Name Priority Date/Time Associated Diagnosis Comments HEMOGLOBIN A1C Routine 04/20/2019 9:49 AM CDT Refused influenza vaccine Elevated blood sugar from Last 3 Months or Most Recently Relevant to Health Maintenance Results * HEMOGLOBIN A1C (04/20/2019 9:49 AM CDT) HEMOGLOBIN A1C 5.5 See Comment % 04/20/2019 8:18 PM CDT [facility] EST. AVG GLUCOSE, A1C 111 mg/dL 04/20/2019 8:18 PM CDT [facility] Blood Collection / Unknown 04/20/2019 9:49 AM CDT 04/20/2019 7:44 PM CDT Narrative [facility] - 04/20/2019 8:18 PM CDT HGB A1C INTERPRETATION NORMAL: <5.7% PRE-DIABETES: 5.7 - 6.4% DIABETES: 6.5% OR GREATER Falsely low A1C measurements can occur when: 1. Anemia and/or hemolytic anemia is present. 2. Hemoglobin variants present. 3. Renal failure. 4. Transfusion of blood product in the last 120 days. We recommend ordering a fructosamine test([id number]) to more accurately assess glycemic status if any of the above conditions are present. us Kvng BROWNING CHEMISTRY ORDERABLES Final Re sult [facility] CLIA# [id number] [address] [place] [address] from Last 3 Months or Most Recently Relevant to Health Maintenance Insurance [address] [place] [id number] WORKERS COMP Compensation Care Teams Ore Miner Relationship Specialty Start Date End Date Wiley Lanier MD [address] [facility] [address] [place] [phone] PCP - General Family Practice 01/12/21
--- OUTSIDE RECORDS SUMMARY | 2025-06-14 12:58 | XMS_ITS | Encounter Summary ---
Author Organization [facility] Address [address] [place] [address] Care Team Providers Care Oxygen Therapist Name Role Phone Wiley Lanier MD Primary Care Provider [phone] [phone] Encounter Details Date Type Department Care Team (Late st Contact Info) Description 02/02/2019 Ancillary Orders [facility] Centralized Scheduling [address] [address] Kiesha Maynard, MECHANICAL LEAD [address] [place] [address] Social History Tobacco Use Types Packs/Day Years Used Date Smoking Tobacco: Former Smokeless Tobacco: Never Alcohol Use Standard Drinks/Week Comments No 0 (1 standard drink = 0.6 oz pur e alcohol) Sex and Gender Information Value Date Recorded Sex Assigned at Not on file 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
--- OUTSIDE RECORDS SUMMARY | 2025-06-14 12:58 | XMS_ITS | Encounter Summary ---
Author Organization [facility] Address [address] [place] [address] Care Team Providers Care Jewelry Setter Name Role Phone Wiley Lanier MD Primary Care Provider [phone] [phone] Encounter Details Date Type Department Care Team (Late st Contact Info) Description 02/04/2019 Lab Requisition [facility] Laboratory Services [place] [address] [place] [address] Kiesha Maynard, DRYERMAN/WOMAN [address] [place] [address] Social History Tobacco Use Types Packs/Day Years Used Date Smoking Tobacco: Former Smokeless Tobacco: Never Alcohol Use Standard Drinks/Week Comments No 0 (1 standard drink = 0.6 oz pur e alcohol) Sex and Gender Information Value Date Recorded Sex Assigned at Not on file 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 Gender Identity Not on file Sexual Orientation Not on file documented as of this encounter Plan of Treatment Not on file documented as of this encounter Procedures Procedure Name Priority Date/Time Associated Diagnosis Comments PSA Routine 02/01/2019 6:00 PM CDT documented in this encounter Results * PSA (02/01/2019 6:00 PM CDT) PSA 0.6 0.0 - 4.0 ng/mL 02/04/2019 8:41 PM CDT [facility] Blood Collection / Unknown 02/01/2019 6:00 PM CDT 02/04/2019 2:55 PM CDT us Kiesha Cheri Maynard DRYERMAN/WOMAN CHEMISTRY ORDERABLES Tere sanchez Result [facility] CLIA# [id number] [address] [facility] [place] [address] documented in this encounter Visit Diagnoses Not on filedocumented in this encounter Care Teams Jewelry Setter Relationship Specialty Start Date End Date Wiley Lanier MD [address] [phone] PCP - General Family Practice 01/12/21 documented as of this encounter
--- OUTSIDE RECORDS SUMMARY | 2025-06-14 12:58 | XMS_ITS | Encounter Summary ---
Author Organization [facility] Address [address] [place] [address] Care Team Providers Care Electroplating Technician Name Role Phone Wiley Lanier MD Primary Care Provider [phone] [phone] Encounter Details Date Type Department Care Team (Latest Contact Info) Description 11/27/2004 Outpatient Historical [facility] Family Medicine- [address] [place] [address] Kvng Ba PA NO ADDRESS ON FILE FX CLAVICLE NOS-CLOSED (Primary Dx) Social History Tobacco Use Types Packs/Day Years Used Date Smoking Tobacco: Never Assessed Sex and Gender Information Value Date Recorded Sex Assigned at Not on file 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
--- OUTSIDE RECORDS SUMMARY | 2025-06-14 12:58 | XMS_ITS | Encounter Summary ---
Author Organization [facility] Address [address] [place] [address] Care Team Providers Care Professional Security Officer Name Role Phone Wiley Lanier MD Primary Care Provider [phone] [phone] Encounter Details Date Type Department Care Team (Latest Contact Info) Description 08/25/2006 Outpatient [facility] Medicine [address] [phone] Rakel Campo MD NO ADDRESS ON FILE Esophageal Reflux (Primary Dx) Social History Tobacco Use Types Packs/Day Years Used Date Smoking Tobacco: Never Assessed Sex and Gender Information Value Date Recorded Sex Assigned at Not on file Legal 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
--- OUTSIDE RECORDS SUMMARY | 2025-06-14 12:58 | XMS_ITS | Encounter Summary ---
Author Organization [facility] Address [address] [place] [address] Care Team Providers Care Concrete Mixer Operator Name Role Phone Wiley Lanier MD Primary Care Provider [phone] [phone] Encounter Details Date Type Department Care Team (Late st Contact Info) Description 05/19/2018 Ancillary Orders [facility] Pre-Registration [place] CALL TO MAKE APPOINTMENT ONLY [address] [place] [address] Praneeth Rapp DO NO ADDRESS ON FILE Chest pain; Abnormal EKG; Hyperlipidemia Social History Tobacco Use Types Packs/Day Years Used Date Smoking Tobacco: Never Smokeless Tobacco: Never Alcohol Use Standard Drinks/Week Comments Yes 0 (1 standard drink = 0.6 oz pur e alcohol) occasional Sex and Gender Information Value Date Recorded Sex Assigned at Not on file 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
--- OUTSIDE RECORDS SUMMARY | 2025-06-14 12:58 | XMS_ITS | Encounter Summary ---
Author Organization [facility] Address [address] [place] [address] Care Team Providers Care Aircraft Maintenance Supervisor Name Role Phone Wiley Lanier MD Primary Care Provider [phone] [phone] Reason for Referral * CT Scan (Routine) - Closed Specialty Diagnoses / Procedures Referred By Contjorge t Referred To Contact Radiology Diagnoses Kidney stones Procedures CT ABDOMEN PELVIS WO CONTRAST Kiesha Maynard FNP [address] [place] [address] Phone: tel: fax: [facility] CT Scan [facility] [address] [facility] [address] [place] [address] Phone: tel: fax: Referral ID Status Reason Start Date Expiration Date V isits Requested Visits Authorized [id number] Closed [facility] View CTS to Schedule (SGF) 02/02/2019 03/04/2020 1 1 Encounter Details Date Type Department Care Team ([facility] st Contact Info) Description 02/02/2019 Ancillary Orders 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 Exam: CT ABDOMEN PELVIS WO CONTRAST Date/Time of Exam: 02/03/2019 8:46 AM Reason For Exam: See Diagnosis. Diagnosis: Kidney stones. Technique: Axial tomograms obtained through the abdomen and pelvis without IV contrast. Findings: Imaged lung bases unremarkable. Parenchymal detail of solid abdominal organs limited by absence of IV contrast. Gross appearance of left renal cyst. No hydronephrosis of either kidney. No radiopaque urinary tract calculi. No hydroureter. Moderate grossly unremarkable. Prostatomegaly. Liver, spleen, pancreas and adrenals unremarkable. Nonspecific appearing gallbladder. No free fluid or free air. Scattered colonic diverticuli without active inflammatory change. Abundant amount retained stool. Nonspecific dilated loops of jejunum within left side of abdomen with much retained material within these dilated loops of jejunum. Gross appearance also of uniform fold thickening of these loops of jejunum. No apparent transition region. No aneurysm of abdominal aorta. No gross lymphadenopathy by size criteria. Imaged skeleton without apparent acute pathology. IMPRESSION: No obstructive uropathy. Possible enteropathy involving loops of jejunum as detailed above. Clinical correlation recommended. Narrative Procedure Note Dragan Avitia MD - 02/03/2019 IMPRESSION: Please see below. Exam: CT ABDOMEN PELVIS WO CONTRAST Date/Time of Exam: 02/03/2019 8:46 AM Reason For Exam: See Diagnosis. Diagnosis: Kidney stones. Technique: Axial tomograms obtained through the abdomen and pelvis without IV contrast. Findings: Imaged lung bases unremarkable. Parenchymal detail of solid abdominal organs limited by absence of IV contrast. Gross appearance of left renal cyst. No hydronephrosis of either kidney. No radiopaque urinary tract calculi. No hydroureter. Moderate grossly unremarkable. Prostatomegaly. Liver, spleen, pancreas and adrenals unremarkable. Nonspecific appearing gallbladder. No free fluid or free air. Scattered colonic diverticuli without active inflammatory change. Abundant amount retained stool. Nonspecific dilated loops of jejunum within left side of abdomen with much retained material within these dilated loops of jejunum. Gross appearance also of uniform fold thickening of these loops of jejunum. No apparent transition region. No aneurysm of abdominal aorta. No gross lymphadenopathy by size criteria. Imaged skeleton without apparent acute pathology. IMPRESSION: No obstructive uropathy. Possible enteropathy involving loops of jejunum as detailed above. Clinical correlation recommended. us Kiesha Maynard PERIPATOLOGIST CT ORDERABLES Final Res ult documented in this encounter Visit Diagnoses Diagnosis Kidney stones Calculus of kidney Kidney stones Calculus of kidney documented in this encounter Care Teams Aircraft Maintenance Supervisor Relationship Specialty Start Date End Date Wiley Lanier MD [address] [facility] [address] [place] [address] PCP - General Family Practice 01/12/21 documented as of this encounter
--- OUTSIDE RECORDS SUMMARY | 2025-06-14 12:58 | XMS_ITS | Encounter Summary ---
Author Organization [facility] Address [address] [place] [address] Care Team Providers Care Medical Doctor Md/Medical Director Name Role Phone Wiley Lanier MD Primary Care Provider [phone] [phone] Encounter Details Date Type Department Care Team (Latest Contact Info) Description 08/29/2004 Outpatient Historical [facility] Family Medicine- [place] [address] [place] [address] Pantera Miller NP NO ADDRESS ON FILE ESOPHAGEAL REFLUX (Primary Dx) Social History Tobacco Use Types Packs/Day Years Used Date Smoking Tobacco: Never Assessed Sex and Gender Information Value Date Recorded Sex Assigned at Not on file 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
--- OUTSIDE RECORDS SUMMARY | 2025-06-14 12:58 | XMS_ITS | Encounter Summary ---
Author Organization [facility] Address [address] [place] [address] Care Team Providers Care Order Desk Clerk Name Role Phone Wiley Lanier MD Primary Care Provider [phone] [phone] Encounter Details Date Type Department Care Team (Late st Contact Info) Description 02/01/2019 Lab Requisition [facility] Services [place] [address] [place] [address] Praneeth Rapp, DO NO ADDRESS ON FILE Social History Tobacco Use Types Packs/Day Years Used Date Smoking Tobacco: Former Smokeless Tobacco: Never Alcohol Use Standard Drinks/Week Comments No 0 (1 standard drink = 0.6 oz pur e alcohol) Sex and Gender Information Value Date Recorded Sex Assigned at Not on file 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 Gender Identity Not on file Sexual Orientation Not on file documented as of this encounter Plan of Treatment Not on file documented as of this encounter Procedures Procedure Name Priority Date/Time Associated Diagnosis Comments CBC WITH DIFFERENTIAL Routine 02/01/2019 10:00 PM CDT URIC ACID Routine 02/01/2019 10:00 PM CDT PTH INTACT Routine 02/01/2019 10:00 PM CDT LIPID PANEL Routine 02/01/2019 10:00 PM CDT COMPREHENSIVE METABOLIC PANEL Routine 02/01/2019 10:00 PM CDT documented in this encounter Results * (ABNORMAL) COMPREHENSIVE METABOLIC PANEL (02/01/2019 10:00 PM [facility]) SODIUM 139 136 - 145 mmol/L 02/02/2019 2:10 AM [facility] POTASSIUM 4.0 3.5 - 5.1 mmol/L 02/02/2019 2:10 AM [facility] CHLORIDE 101 98 - 107 mmol/L 02/02/2019 2:10 AM [facility] CO2 25 22 - 29 mmol/L 02/02/2019 2:10 AM [facility] CALCIUM 9.2 8.6 - 10.0 mg/dL 02/02/2019 2:10 AM [facility] BUN 21(H) 6 - 20 mg/dL 02/02/2019 2:10 AM [facility] CREATININE 0.84 0.67 - 1.17 mg/dL 02/02/2019 2:10 AM [facility] GLUCOSE 94 74 - 99 mg/dL 02/02/2019 2:10 AM [facility] TOTAL PROTEIN 6.8 6.6 - 8.7 g/dL 02/02/2019 2:10 AM [facility] ALBUMIN 4.4 3.5 - 5.2 g/dL 02/02/2019 2:10 AM [facility] BILIRUBIN TOTAL 0.9 0.0 - 1.2 mg/dL 02/02/2019 2:10 AM [facility] ALKALINE PHOSPHATASE 77 40 - 129 U/L 02/02/2019 2:10 AM [facility] AST 31 10 - 50 U/L 02/02/2019 2:10 AM [facility] ALT 49 10 - 50 U/L 02/02/2019 2:10 AM [facility] GFR >60 >=60 mL/min/1.7 3 sq meter 02/02/2019 2:10 AM [facility] Comment: eGFR has not been validated [...] GFR, >60 >=60 mL/min/1.7 3 sq meter 02/02/2019 2:[address] [facility] ANION GAP 13 12 - 20 mmol/L 02/02/2019 2:10 AM [facility] Blood Collection / Unknown 02/01/2019 10:00 PM CDT 02/02/2019 12:48 AM CDT us Praneeth Rapp DO CHEMISTRY ORDERABLES Final Resu lt [facility] CLIA # [id number] [address] [place] [address] * (ABNORMAL) CBC WITH DIFFERENTIAL (02/01/2019 10:00 PM CDT) WBC 10.1(H) 4.2 - 9.1 K/uL 02/02/2019 1:27 AM [facility] RBC 4.61(L) 4.63 - 6.08 M/uL 02/02/2019 1:27 AM [facility] HEMOGLOBIN 14.0 13.7 - 17.5 g/dL 02/02/2019 1:27 AM [facility] HEMATOCRIT 43.3 40.1 - 51.0 % 02/02/2019 1:27 AM [facility] MCV 93.9(H) 79.0 - 92.2 fL 02/02/2019 1:27 AM [facility] MCH 30.4 25.7 - 32.2 pg 02/02/2019 1:27 AM [facility] MCHC 32.3 32.3 - 36.5 g/dL 02/02/2019 1:27 AM [facility] RDW 13.6 11.0 - 14.5 % 02/02/2019 1:27 AM [facility] RDW-STDEV 44.7 36.9 - 56.9 fL 02/02/2019 1:27 AM [facility] PLATELETS 342 130 - 400 K/uL 02/02/2019 1:27 AM [facility] MPV 10.5 10.0 - 14.8 fL 02/02/2019 1:27 AM [facility] NEUTROPHILS 59 34 - 68 % 02/02/2019 1:27 AM [facility] LYMPHOCYTES 31 22 - 53 % 02/02/2019 1:27 AM [facility] MONOCYTES 7 5 - 12 % 02/02/2019 1:27 AM [facility] EOSINOPHILS 4 1 - 7 % 02/02/2019 1:27 AM [facility] BASOPHILS 0 0 - 1 % 02/02/2019 1:27 AM [facility] IMMATURE GRANULOCYTES 0 % 02/02/2019 1:27 AM [facility] NEUTROPHIL ABSOLUTE 5.94(H) 1.78 - 5.38 K/uL 02/02/2019 1:27 AM [facility] LYMPHOCYTE ABSOLUTE 3.09 1.20 - 3.40 K/uL 02/02/2019 1:27 AM [facility] MONOCYTE ABSOLUTE 0.67 0.30 - 0.82 K/uL 02/02/2019 1:27 AM [facility] EOSINOPHIL ABSOLUTE 0.38 0.04 - 0.54 K/uL 02/02/2019 1:27 AM [facility] BASOPHILS ABSOLUTE 0.03 0.01 - 0.08 K/uL 02/02/2019 1:27 AM [facility] IMMATURE GRANULOCYTES ABSOLUTE 0.02 K/uL 02/02/2019 1:27 AM [facility] Blood Collection / Unknown 02/01/2019 10:00 PM CDT 02/02/2019 12:41 AM CDT us Praneeth Rapp DO HEMATOLOGY ORDERABLES Final Res ult [facility] CLIA # [id number] [address] [place] [address] * (ABNORMAL) LIPID PANEL (02/01/2019 10:00 PM CDT) CHOLESTEROL 165 <200 mg/dL 02/02/2019 2:[address] [facility] TRIGLYCERIDE 173(H) <150 mg/dL 02/02/2019 2:[address] [facility] HDL 50 40 - 59 mg/dL 02/02/2019 2:[address] [facility] LDL CALCULATED 80 <100 mg/dL 02/02/2019 2:[address] [facility] NON-HDL CHOLESTEROL 115 <130 mg/dL 02/02/2019 2:[address] [facility] Blood Collection / Unknown 02/01/2019 10:00 PM CDT 02/02/2019 12:[address] [facility] - 02/02/2019 2:10 AM CDT TOTAL CHOLESTEROL mg/dL Desirable <200 [...] Rapp DO CHEMISTRY ORDERABLES Final Resu lt [facility] CLIA # [id number] [address] [id number] * URIC ACID (02/01/2019 10:00 PM CDT) URIC ACID 6.0 3.4 - 7.0 mg/dL 02/02/2019 2:[address] [facility] Blood Collection / Unknown 02/01/2019 10:00 PM CDT 02/02/2019 12:48 AM CDT Praneeth Rapp DO CHEMISTRY ORDERABLES Final Resu lt Performing Organization Address City/[facility]/ZIP Co de Phone Number [facility] CLIA # [id number] [address] [address] * PTH INTACT (02/01/2019 10:00 PM CDT) PTH INTACT 32.6 15.0 - 65.0 pg/mL 02/02/2019 9:12 PM CDT [facility] Blood Collection / Unknown 02/01/2019 10:00 PM CDT 02/02/2019 12:21 AM CDT Praneeth Rapp DO CHEMISTRY ORDERABLES Final Resu lt Performing Organization Address City/[facility]/ZIP Co de Phone Number [facility] CLIA# [id number] [address] [place] [address] documented in this encounter Visit Diagnoses Not on filedocumented in this encounter Care Teams Order Desk Clerk Relationship Specialty Start Date End Date Wiley Lanier MD [address] [phone] PCP - General Family Practice 01/12/21 documented as of this encounter
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
--- NOTE | 2025-06-14 13:35 | ED_ITS ---
HPI - Abdominal Pain 2 General: Chief Complaint: Abdominal Pain Stated Complaint: upper abd pain, light headed Time Seen by Provider: 06/14/25 13:32 Source: patient Mode of arrival: ambulatory Limitations: no limitations History of Present Illness: 55-year-old male who presents to the ED for worsening epigastric pain with associated nausea over the past 2 weeks. He has chronic pain x years. He has been doubling his Omeprazole for the past 2 weeks but has not noticed any improvement in his symptoms. He states that the discomfort is not better or worse before or after meals. He was seen in the ED for similar complaint in November 2024 and was referred to general surgery for an EGD. He states that he was unable to get the EGD done because the provider had left and he did not get a call back to reschedule this. Did have a gallbladder US then which was normal. Feels nauseous with his pain but no vomiting or changes in bowel movements. No chest pain/dyspnea. No other complaints at this time. MD elicited complaint: abdominal pain Pertinent past history: other (chronic heartburn) Onset (ago): month(s) (2) Pain Consistency: intermittent Location: Epigastric Severity: moderate Quality: burning Radiation: none Migration to: epigastric Exacerbating factors: nothing Relieving factors: nothing Associated Symptoms: Reports heartburn and nausea; Denies chills, constipation, diarrhea, dysuria, fever(s), hematemesis and vomiting Related Data Home Medications ?Medication ?Instructions ?Recorded ?Confirmed lisinopril 10 mg tablet 10 mg PO QPM 06/14/25 Previous Rx's ?Medication ?Instructions ?Recorded famotidine 40 mg tablet (Pepcid) 40 mg PO DAILY #14 ta bs 06/14/25 pantoprazole 40 mg tablet,delayed 40 mg PO DAILY 4 wee ks #28 tabs 06/14/25 release (Protonix) sucralfate 1 gram tablet (Carafate) 1 g PO TID 2 weeks #42 tabs 06/14/25 Allergies Allergy/AdvReac Type Severity Reaction Status Date / Time No Known Allergies Allergy Verified 12/20/24 10:58 Review of Systems 2 Const: Denies: fever(s), chills, body aches, fatigue or malaise Card: Denies: chest pain Resp: Denies: dyspnea GI: Reports: abdominal pain, nausea and heartburn; Denies: vomiting, hematemesis, diarrhea or constipation : Denies: flank pain, difficulty urinating, dysuria, urinary frequency, urinary urgency or urinary hesitancy Musc: Denies: neck pain, back pain, extremity pain, extremity swelling, joint pain, joint swelling or joint redness Skin/Breast: Denies: rash Neuro: Denies: headache(s), numbness in extremities, weakness in extremities, sensory changes or dizziness PFSH ED 2 PFSH: Medical History HTN (hypertension) Surgical History No pertinent past surgical history Family History Father No problems noted. Mother ALS (amyotrophic lateral sclerosis) Social History Smoking and tobacco/nicotine status: former use of tobacco/nicotine Quit status (tobacco/nicotine): has quit using Second hand smoke exposure: No Alcohol intake: former Substance/Drug Use: former Adopted: No Caregiver/support person: No Lives independently: Yes Household members: spouse and children Housing: House Marital status: Number of children: 2 Highest education level completed: GED or Equivalent service: No Current occupational status: employed Physical Exam 2 Const: COMMON NORMALS: no acute distress, average body habitus, patient oriented x3, no limitations, healthy appearing, alert and well nourished G ENERAL APPEARANCE: cooperative ORIENTATION/CONSCIOUSNESS: Yes awake, Yes oriented to person, Yes oriented to place and Yes oriented to time Resp: COMMON NORMALS: normal respiratory effort and clear to auscultation bilaterally AUSCULTATION: clear to auscultation bilaterally Cardio: COMMON NORMALS: regular rate and regular rhythm RATE: regular rate RHYTHM: regular rhythm GI: COMMON NORMALS: Normal to inspection, nondistended, normoactive bowel sounds present, Soft to palpation, No hepatosplenomegaly present and no masses INSPECTION: Yes normal to inspection AUSCULTATION: Yes normoactive bowel sounds PALPATION: Yes Soft to palpation, Yes Tenderness to palpation present (GI) (epigastric ), No Guarding due to palpation present (GI), No Rigid due to palpation and Yes No hepatosplenomegaly present : COMMON NORMALS: Yes no CVA tenderness BLADDER/KIDNEY EXAM: Yes no CVA tenderness Back/Pelvis: COMMON NORMALS: no CVA tenderness Neuro: COMMON NORMALS: patient oriented x3 SENSORIUM/ORIENTATION: Yes alert, Yes oriented to person, Yes oriented to place and Yes oriented to time Course 2 Vital Signs: Vital signs: Vital Signs Temperature 98.0 F 06/14/25 12:54 Pulse Rate 61 06/14/25 12:54 Respiratory Rate 16 06/14/25 12:54 Blood Pressure 147/91 06/14/25 12:54 Pulse Oximetry 98 06/14/25 12:54 Oxygen Delivery Me thod Room Air 06/14/25 12:54 MDM - Abdominal Pain Medical Decision Making Patient clinically appears in no acute distress. Vital signs are stable. White count is normal. Chemistry overall is nonactionable. He does have chronic isolated hyperbilirubinemia. This is stable. Lipase is unremarkable. Pain is reproducible with palpation to his epigastric region. Will change his omeprazole to pantoprazole and add an H2 and Carafate. Have case management refer him back to general surgery for evaluation for possible endoscopy. Return to ED precautions discussed. Medical Records I reviewed the patient's medical records. Lab Data I reviewed the patient's lab results. 06/14/25 13:26 06/14/25 13:26 Labs/Radiology: Laboratory Results WBC 8.38 10^3/uL (3.29-11.43) 06/14/25 13:26 RBC 5.78 10^6/uL (3.85-5.65) H 06/14/25 13:26 Hgb 16.90 g/dL (11.27-16.99) 06/14/25 13:26 Hct 51.8 % (37-53) 06/14/25 13:26 MCV 89.6 fl (82-101) 06/14/25 13:26 MCH 29.2 pg (27-33) 06/14/25 13:26 MCHC 32.6 g/dL (30-55) 06/14/25 13:26 RDW 14.6 % (12.1-15.1) 06/14/25 13:26 Plt Count 212 10^3/cmm (157-399) 06/14/25 13:26 MPV 12.0 fL (7.4-10.4) H 06/14/25 13:26 Neut % (Auto) 64.0 % 06/14/25 13:26 Lymph % (Auto) 24.3 % 06/14/25 13:26 [place] % (Auto) 9.7 % 06/14/25 13:26 Eos % (Auto) 1.3 % 06/14/25 13:26 Baso % (Auto) 0.5 % 06/14/25 13:26 Neut # (Auto) 5.36 10^3/uL (1.8-7.7) 06/14/25 13:26 Lymph # (Auto) 2.0 10^3/uL (0.8-4.8) 06/14/25 13:26 [place] # (Auto) 0.8 10^3/uL (0.2-0.9) 06/14/25 13:26 Eos # (Auto) 0.1 10^3/uL (0.0-0.8) 06/14/25 13:26 Baso # (Auto) 0.0 10^3/uL (0.0-0.1) 06/14/25 13:26 Nucleated RBC % (auto) 0 % 06/14/25 13: Nucleated RBCs # 0.0 /100WBC 06/14/25 13:26 Sodium 137 mmol/L (136-145) 06/14/25 13:26 Potassium 4.0 mmol/L (3.5-5.1) 06/14/25 13:26 Chloride 100 mmol/L (98-107) 06/14/25 13:26 Carbon Dioxide 22 mmol/L (22-29) 06/14/25 13:26 Anion Gap 19.0 (5-19) 06/14/25 13:26 BUN 19 mg/dL (6-20) 06/14/25 13:26 Creatinine 0.9 mg/dL (0.7-1.2) 06/14/25 13:26 GFR Calculation 87.6 mL/min (90-130) L 06/14/25 13:26 Glucose 96 mg/dL (65-115) 06/14/25 13:26 Calculated Osmolality 286 mOsm/kg (285-295) 06/14/25 13:26 Calcium 9.5 mg/dL (8.5-10.5) 06/14/25 13:26 Total Bilirubin 1.9 mg/dL (0.15-1.2) H 06/14/25 13:26 AST 24 U/L (0-40) 06/14/25 13:26 ALT 44 U/L (0-41) H 06/14/25 13:26 Alkaline Phosphatase 125 U/L (40-130) 06/14/25 13:26 Total Protein 8.3 g/dL (6.6-8.7) 06/14/25 13:26 Albumin 4.6 g/dL (3.5-5.2) 06/14/25 13:26 Globulin 3.7 g/dL (1.3-4.6) 06/14/25 13:26 Lipase 27 U/L (13-60) 06/14/25 13:26 No radiology studies performed this visit Discharge Plan Discharge Patient Disposition: Home Clinical Impression: Epigastric abdominal pain Condition: Stable Prescriptions: New sucralfate [Carafate] 1 gram tablet 1 g PO TID 14 Days Qty: 42 0RF pantoprazole [Protonix] 40 mg tablet,delayed release (DR/EC) 40 mg PO DAILY 28 Days Qty: 28 0RF famotidine [Pepcid] 40 mg tablet 40 mg PO DAILY Qty: 14 0RF Discontinued omeprazole 20 mg Capsule,Delayed Release(Dr/Ec) 20 mg PO QPM No Action lisinopril 10 mg tablet 10 mg PO QPM Discharge Orders: Discharge ED (Routine); Ordered 06/14/25 Ordered By: Franny Andrews Referrals: Wiley Lanier [Primary Care Provider, [facility]] Patient Instructions: Abdominal Pain (ED), Epigastric Pain (ED), Patient Portal & Cass Instructions Activity Restrictions/Additional Instructions: As we discussed, we will switch you from your omeprazole to pantoprazole as well as add an acid hot metal mixer operator helper and a gastric potent protectant to see if this helps with discomfort. Case management should contact you this week to help set you up with your follow-up appointment with general surgery for further evaluation and possible need for EGD. You may return to the emergency department at anytime for any further concerns you may have. Print Language: Occitan Coding Level of Care Code ED Supervisor Laboratory Animal Facility for Ame Gaytan
[2025-06-14 13:41] LABS: Hematocrit 51.8 % (37-53); Hemoglobin 16.90 g/dL (11.27-16.99); Mean Corpuscular HGB Conc 32.6 g/dL (30-55); Mean Corpuscular Hemoglobin 29.2 pg (27-33); Mean Corpuscular Volume 89.6 fl (82-101); Nucleated Red Blood Cells % 0 %; Platelet Count 212 10^3/cmm (157-399); Red Blood Count 5.78 10^6/uL (3.85-5.65); White Blood Count 8.38 10^3/uL (3.29-11.43)
[2025-06-14 14:00] LABS: Alanine Aminotransferase 44 U/L (0-41); Albumin Level 4.6 g/dL (3.5-5.2); Alkaline Phosphatase 125 U/L (40-130); Blood Urea Nitrogen 19 mg/dL (6-20); Calcium 9.5 mg/dL (8.5-10.5); Carbon Dioxide 22 mmol/L (22-29); Chloride 100 mmol/L (98-107); Creatinine Clr Calc Pharmacy 113.5773; Globulin 3.7 g/dL (1.3-4.6); Glucose 96 mg/dL (65-115); Lipase 27 U/L (13-60); Osmolality Calculated 286 mOsm/kg (285-295); Sodium 137 mmol/L (136-145); Total Protein 8.3 g/dL (6.6-8.7)
[2025-06-14 14:08] LABS: Anion Gap 19.0 (5-19); Potassium 4.0 mmol/L (3.5-5.1)
[2025-06-14 14:09] LABS: Aspartate Amino Transferase 24 U/L (0-40)
[2025-06-14] MEDS: lidocaine 2% viscous 15 ML, aluminum-mag hydrox-simethicon 30 ML, sucralfate oral liq 1 GM PO (14:11)
--- NOTE | 2025-06-14 14:17 | ECG_ITS ---
[facility] Date: 2025-06-14 Pat Name: Anastacio Coleman Department: Room: Gender: Male Mix Maker: : 1970 Requested By: Derian Alexandra Order Number: [id number] Malka MD: Gwyn Kong M.D. Measurements Intervals [place] Rate: 52 P: 27 SD: 166 QRS: -8 QRSD: 102 T: 31 QT: 439 QTc: 410 Interpretive Statements SINUS BRADYCARDIA Compared to ECG 02/20/2024 15:04:57 No significant changes Electronically Signed On 06-16-2025 09:04:48 CDT by Gwyn Kong M.D. [email or web address]
[2025-06-14 14:26] VITALS: BP 139/91; PULSE 64; O2SAT 97
[2025-06-14 14:30] VITALS: PULSE 60; O2SAT 98
[2025-06-14 14:53] VITALS: BP 139/91; PULSE 59; O2SAT 93
--- NOTE | 2025-06-15 12:39 | PC.NURSE ---
General Surgery referral sent
== END 2025-06-14 14:54 | disposition home or self-care (01) ==
PROVIDERS: Emergency Medicine; Emergency Provider Physician Assistant; PCP Family Medicine
DX: R10.13 Epigastric pain (principal); Z87.891 Personal history of nicotine dependence; I10 Essential (primary) hypertension
CPT/HCPCS: 36415; 80053; 83690; 85025; 93005; 99284; J9999